=== PATIENT | male | born 1950 | race Caucasian/White ===

== ENCOUNTER → 2016-02-27 | Outpatient (CLI) | payer OTHER ==
[~2016-02-27] MED LIST: ASCA500 PO; ASPEC81 PO; ATOR10TA88 PO; CYAN10005 PO; LISI10TA PO; OMEG10007 PO
--- NOTE | 2016-02-27 12:20 | DIAGNOSTIC IMAGING REPORT ---
ABDOMINAL ULTRASOUND, RIGHT UPPER QUADRANT HISTORY: R10.11 Right upper quadrant abdominal pain of unknown etiology. COMPARISON: None. FINDINGS: Pancreas: The pancreas demonstrates a normal echotexture. Liver: The liver is echogenic consistent with fatty change. Mildly enlarged measuring 19.5 cm in length. Gallbladder: No gallbladder wall thickening. No gallstones. CBD: 5 mm. Right kidney: No hydronephrosis. There is a 1.8 x 1.6 cm cyst within the upper pole. A few echogenic foci adjacent to the cyst may represent peripheral calcification. These measure up to 1 cm.. IMPRESSION: 1. Normal gallbladder. No gallstones. 2. Hepatomegaly demonstrating fatty change. 3. A 1.8 x 1.6 cm cyst within the upper pole of the right kidney. There are adjacent echogenic foci which may represent coarse cortical calcifications. Electronically signed by: Alfredo Soliman M.D. 02/27/2016 12:18 PM Dictated Date/Time: 02/27/2016 12:15 PM
[2016-02-27 13:24] LABS: BASO % 0.6 %; BASO ABS # 0.04 K/uL (0-0.2); COMPLETE YES; EOS % 3.2 %; HEMATOCRIT 41.2 % (42-52); IG% 0.3 %; LYMPH % 19.8 %; LYMPH ABS # 1.36 K/uL (1.2-3.4); MEAN CELL VOLUME 90.7 fL (80-100); MEAN CORPUSCULAR HEMOGLOBIN 30.2 pg (25-34); MEAN CORPUSCULAR HGB CONC 33.3 g/dl (32-36); MEAN PLATELET VOLUME 10.3 fL (7.4-10.4); MONO % 12.5 %; NEUT % 63.6 %; PLATELET COUNT 243 K/uL (130-400); RED BLOOD COUNT 4.54 M/uL (4.7-6.1); WHITE BLOOD COUNT 6.87 K/uL (4.8-10.8)
[2016-02-27 13:29] LABS: URINE APPEARANCE CLEAR (CLEAR); URINE BILIRUBIN NEG (NEG); URINE COLOR DK YELLOW; URINE EPITHELIAL CELL AUTO >30 /lpf (0-5); URINE NITRITE NEG (NEG); URINE PH 6.5 (4.5-7.5); URINE SPECIFIC GRAVITY 1.026 (1.000-1.030); UROBILINOGEN NEG (NEG)
[2016-02-27 13:52] LABS: MANUAL MICROSCOPIC REQUIRED? NO; REVIEW REQ? YES
[2016-02-27 13:57] LABS: ALB/GLOB RATIO 0.9 (0.9-2); ALKALINE PHOSPHATASE 87 U/L (45-117); ALT/SGPT 27 U/L (12-78); AST/SGOT 11 U/L (15-37); BLOOD UREA NITROGEN 20 mg/dl (7-18); BUN/CREATININE RATIO 18.5 (10-20); CALCIUM 9.2 mg/dl (8.5-10.1); CARBON DIOXIDE 29 mmol/L (21-32); CHLORIDE 105 mmol/L (98-107); GLUCOSE 105 mg/dl (70-99); HDL CHOLESTEROL 39 mg/dl; POTASSIUM 4.7 mmol/L (3.5-5.1); SODIUM 141 mmol/L (136-145)
[2016-02-27 14:03] LABS: URINE MUCUS PRESENT (NONE PRSENT)
[2016-02-27 14:07] LABS: CHOLESTEROL 151 mg/dl (0-200); CHOLESTEROL/HDL RATIO 3.9; LDL CHOLESTEROL CALCULATED 77 mg/dl; TRIGLYCERIDES 174 mg/dl (0-150); VERY LOW DENSITY LIPOPROT CALC 35 mg/dl
== END | disposition home or self-care (01) ==
LOC: C.ULTR 11:39
PROVIDERS: ATTEND Family Medicine
DX: R10.11 Right upper quadrant pain (principal); E78.5 Hyperlipidemia, unspecified; I10 Essential (primary) hypertension; R12 Heartburn; R16.0 Hepatomegaly, not elsewhere classified; N28.1 Cyst of kidney, acquired

== ENCOUNTER → 2017-02-14 | Outpatient (CLI) | payer OTHER ==
[~2017-02-14] MED LIST changes: +ATOR10TA82 PO; -ATOR10TA88 PO
== END | disposition home or self-care (01) ==
LOC: C.LABMFLN 10:31
PROVIDERS: ATTEND Physician Assistant
DX: J02.9 Acute pharyngitis, unspecified (principal)

== ENCOUNTER → 2017-02-24 | Outpatient (CLI) | payer OTHER | END | disposition home or self-care (01) | LOC: C.LABMFLN 12:09 | PROVIDERS: ATTEND Physician Assistant | DX: R35.1 Nocturia (principal) ==

== ENCOUNTER → 2017-03-14 | Outpatient (CLI) | payer OTHER | END | disposition home or self-care (01) | LOC: C.LABMFLN 10:11 | PROVIDERS: ATTEND Physician Assistant | DX: R19.7 Diarrhea, unspecified (principal); T36.95XA Adverse effect of unspecified systemic antibiotic, initial encounter ==

== ENCOUNTER 2021-10-16 16:52 | Observation (INO) ==
--- NOTE | 2021-10-16 17:31 | ED Triage Note ---
Date of Service October 16, 2021 History of Present Illness This patient was briefly evaluated while in triage. An abbreviated physical exam was performed. This patient is a 70-year-old Male who presents to the ED for evaluation of low magnesium levels. Patient states he had this checked as an outpatient and was called and told to come here. He does state he has had some chest pain over the past day. Physical Exam VITALS: Vitals are noted on the nurse's note and reviewed by myself. GENERAL: This is a 70-year-old male, in no acute distress, well-developed well- nourished. SKIN: The skin was without rashes. LUNGS: Normal respiratory effort. NEURO: Patient was alert and oriented to person place and time. Initial orders for labs and / or imaging were placed and patient was placed in the waiting area until a bed is available. Please see further documentation for the full ED course. MDM / Impression Impression Impression: Hypomagnesemia
[2021-10-16 18:42] LABS: Basophils # (auto) 0.06 K/uL (0-0.2); Basophils % (auto) 0.7 %; Eosinophils # (auto) 0.18 K/uL (0-0.50); Hemoglobin 9.8 g/dl (14.0-18.0); Immature Granulocytes # (auto) 0.04 K/uL (0.00-0.02); Immature Granulocytes % (auto) 0.4 %; Lymphocytes # (auto) 1.93 K/uL (1.2-3.4); Lymphocytes % (auto) 21.1 %; Mean Corpuscular Hemoglobin 28.3 pg (25.0-34.0); Mean Corpuscular Hgb Conc 32.7 g/dL (32.0-36.0); Mean Corpuscular Volume 86.7 fL (80.0-100.0); Mean Platelet Volume 10.5 fL (9.4-12.4); Monocytes # (auto) 0.93 K/uL (0.24-0.82); Monocytes % (auto) 10.2 %; Neutrophils % (auto) 65.6 %; Platelet Count 256 K/uL (130-400); RDW Coefficient of Variation 15.6 % (11.5-14.5); RDW Standard Deviation 49.6 fL (36.4-46.3); Red Blood Count 3.46 M/uL (4.63-6.08); White Blood Count 9.14 K/ul (4.8-10.8)
[2021-10-16 19:03] LABS: BUN Creatinine Ratio 18.1 (10-20); Calcium 7.8 mg/dl (8.5-10.1); Creatinine Clr Calc Pharmacy 71.4 ml/min; Est GFR (African American) 66.8 ml/min; Est GFR (Non-African American) 57.7 ml/min; Potassium 3.6 mmol/L (3.5-5.1)
[2021-10-16 19:05] LABS: Albumin Globulin Ratio 1.2 (0.9-2); Albumin Level 3.9 gm/dl (3.4-5.0); Bilirubin,Total 0.3 mg/dl (0.2-1.0); Globulin 3.3 gm/dl (2.5-4.0); Magnesium 0.5 mg/dl (1.7-2.4); Phosphorus 2.8 mg/dl (2.5-4.9); Total Protein 7.2 gm/dl (6.0-8.3)
--- NOTE | 2021-10-16 19:17 | XRay Report ---
XR chest 1V portable HISTORY: 70 years-old Male Chest pain acute atypical chest pain COMPARISON: Chest radiograph 09/15/1999 TECHNIQUE: Portable AP view of the chest FINDINGS: Cardiomediastinal and hilar silhouettes are within normal limits. No pneumothorax, pleural effusion, airspace consolidation or overt pulmonary edema. Bones of the chest appear grossly intact. IMPRESSION: No acute process. ACT 112: Negative or not required by law. The above report was generated using voice recognition software. It may contain grammatical, syntax o r spelling errors. Electronically signed by: Adam Milner M.D. 10/16/2021 7:15 PM
[2021-10-16] MEDS: MAGNESIUM SULFATE / D5W 1 GM/100 ML BAG IV SCH ×2 (19:31→19:52)
--- NOTE | 2021-10-16 21:57 | Communication Note ---
Date of Service: October 16, 2021 Resident attestation note. ED rotation. I saw the patient with Dr. Grider, the ED attending. I did not participate in the documentation. Resident Activity Tracking Resident Involvement: Resident Care Provided Care Provided: Adult ED
--- NOTE | 2021-10-16 22:12 | History & Physical Report ---
Date of Service October 16, 2021 Assessment & Plan (1) Hypomagnesemia: Plan: Pt is a 70 yo male with PMH of HTN, HLD, GERD, CKD, and UT s/p cath with no stent placement presenting for low magnesium seen on outpatient labs. Hypomagnesemia - asymptomatic - 0.5 on admission - given 2g while in ER - ordered 1g bags x6 - urine random Cr and Mg pending - UA uncollected - BMP, CBC w/o diff, and Mg for AM Anemia - Hgb 9.8 on admission - previously (09/2020) 12.3 - no signs of bleeding - B12, folate normal - iron 45, ferritin 131.5 Chest pain - occurred earlier in the day, not present in ER - EKG showed sinus bradycardia with new incomplete RBBB - trop neg at 4.6 - no further workup CKD III - Cr on admission: 1.27 - Baseline appears to be around 1.2-1.3 - continue to monitor HTN - most recent - continue home meds: 100 mg BID, lisinopril 40 mg daily, chlorthalidone 25 mg daily, amlodipine 10 mg daily HLD - continue home atorvastatin 40 mg HS (2) Anemia: (3) Chronic kidney disease, stage 3a: (4) Hypertension: (5) Hyperlipidemia: Plan Diet: heart healthy Fluids/electrolytes: magnesium 1g bags x6 (+2 from ER) Code: full DVT ppx: lovenox 40 mg Dispo: med/tele History of Present Illness Chief Complaint: low magnesium on outpatient labs Primary Care Provider: Paris Steward PA-C Pt is a 70 yo male with PMH of HTN, HLD, GERD, CKD, and UT s/p cath with no stent placement presenting for low magnesium seen on outpatient labs. Pt explains that he had routine labs drawn on Friday for his outpatient provider. Today, he was notified that the results showed he is anemic and had extremely low magnesium. He has never been told that he was anemic before. He did have an episode similar to this last year where his magnesium was low and he was told to go to the hospital for treatment. It was recommended that he be on oral magnesium supplementation after that episode but the pt may have mis understood and he only bought and took 1 bottle of supplements then quit. Therefore, he has not been taking any supplementation for many months. The only symptoms the pt has noticed is that he feels very fatigued over the last few days. Today, he had a few episodes of sharp, stabbing chest pain. Currently, he is not experiencing chest pain. Pt had a heart attack 1-2 years ago where he did not have any chest pain but his "blood tests" showed that he was having a heart attack. He had a cardiac cath done but no stent was necessary. He does explain that he has had heart palpitations since he was 26 years old. He has had multiple event/holter monitors since then. He describes that he used to feel that his palpitations were like an extra beat, but now they are more like a run of fast beats. These episodes last for about 20 seconds and he usually terminates them by coughing. He has not noticed any increase or change in the heart palpitations recently. He also describes "kaleidoscope vision" over the last few weeks to months for which he has spoken to his outpatient physician about. He is scheduled for a brain MRI. Otherwise, he denies SOB, cough, headaches, abdominal pain, and neurologic deficits of any kind. In the ER, his magnesium was 0.5. His other electrolytes were within normal limits. Troponin was negative at 4.6. B12 and folate were normal. Iron low normal at 45, ferritin 131.5. Hgb was low at 9.8 with MCV of 86.7. His EKG showed sinus bradycardia with a new incomplete RBBB. CXR was negative. He was given 2 grams of magnesium IV while in the ER. Allergies Allergy/AdvReac Type Severity Reaction Status Date / Time bee venom protein (honey bee) Allergy Intermediate EXTRA Verified 10/16/21 23:22 SWELLING OF SITE Home Medications Medication Instructions Recorded Confirmed Type esomeprazole magnesium 20 mg 20 mg PO DAILY 10/22/18 10/16/21 History tablet,delayed release niacin 100 mg tablet 100 mg PO HS 04/13/19 10/16/21 History atorvastatin 40 mg tablet 40 mg PO HS #90 tabs 10/27/20 10/16/21 Rx tadalafil 20 mg tablet 20 mg PO ONCE PRN sexual activity 02/27/21 10/16/21 Rx #10 tabs chlorthalidone 25 mg tablet 25 mg PO DAILY #90 tabs 04/13/21 10/16/21 Rx diphenhydramine HCl 25 mg capsule 25 mg PO QPM 04/13/21 10/16/21 History (Benadryl) amlodipine 10 mg tablet 10 mg PO DAILY #90 tabs 10/11/21 10/16/21 Rx lisinopril 40 mg tablet 40 mg PO DAILY #90 tabs 10/11/21 10/16/21 Rx ascorbate calcium (vitamin C) 500 1,000 mg PO DAILY 10/16/21 10/16/21 History mg tablet cyanocobalamin (vitamin B-12) 0 mcg PO DAILY 10/16/21 10/16/21 History 1,000 mcg tablet (Vitamin B-12) krill 350 mg-omega-3 90 mg-dha 24 1 cap PO DAILY 10/16/21 10/16/21 History mg-epa 50 xz-szhmdkr-alyam capsule ([place]-3 Krill Oil) metoprolol succinate 100 mg 100 mg PO BID 10/16/21 10/16/21 History tablet,extended release 24 hr Past Med/Surg History Medical History Acute kidney injury Anemia Chronic kidney disease, stage 3a GERD (gastroesophageal reflux disease) Heart palpitations HX OF HOLTER MONITOR, NO CONCERNS, FOLLOWS WITH DR. HEARN. Hyperlipidemia Hypertension Hypertensive urgency Hypomagnesemia Kidney stones NSTEMI (non-ST elevated myocardial infarction) PVCs (premature ventricular contractions) Renal artery stenosis Vitamin D deficiency Surgical History Fusion of spine CERVICAL, WITH BONE GRAFT gets pain in legs when moves head back History of appendectomy History of arthroscopy B/L KNEE REPAIR History of colonoscopy History of cystoscopy HX OF LASER STONE DESTRUCTION, STENT PLACEMENT AND REMOVAL, [facility] History of lymph node excision PT HAD BIOPSY OF ENLARGED LYMPH NODE OF NECK, PT LATER HAD NODE REMOVED DUE TO ENLARGEMENT. BENIGN. Nausea and vomiting after administration of anesthetic agent PT RECALLS SEVERE NAUSEA, VOMITING AND ABDOMINAL PAIN FOLLOW URINARY STENT REMOVAL ([facility]) PT UNSURE IF IT WAS AN ANESTHESIA AGENT OR NARCOTIC THAT WAS GIVEN. Family History Other No family history of adverse response to anesthesia Social History Smoking Status: Current every day smoker Cigarettes Per Day: 10 a day; Second Hand Exposure: Yes (parents smoked); Hx Alcohol Use: Yes Alcohol type: hard liquor Hx Substance Use: No Preferred Language: Slovenian Communication Ability: Effective Outdoor Recreation Specialist Required: No Beliefs That Will Affect Care: None Current Living Situation: Family Current Living Situation Comment: Lives with son Feels Safe at Home: Yes Assistive Devices: None Review of Systems Constitutional: Denies fevers and chills. Eyes: Endorses "kaleidoscope vision" Respiratory: Denies SOB, trouble breathing, cough, and congestion. Cardiovascular: Additional Comments: Pt endorses palpitations throughout his entire life. No recent changes. Slight chest pain earlier today. Gastrointestinal: Denies abdominal pain, diarrhea, constipation, hematochezia. Neurologic: Pt endorses occasional numbness in his fingertips Physical Exam Constitutional: NAD, vitals WNL. Eyes: PERRLA. Conjunctivae normal. ENMT: TM normal. Nonerythematous oropharynx with no lesions. Respiratory: CTA bilaterally. Non labored breathing. No rhonchi, wheezing, or crackles. Cardiovascular: RRR. No murmurs noted. No LE edema. Peripheral pulses 2+. Gastrointestinal (Abdomen): Nontender, +BS. No masses noted. Skin: No rashes or skin lesions noted. Neurologic: Sensation grossly intact. No FND appreciated. Psychiatric: Speech of normal pace and content. Mood and affect congruent. Results & Data Results & Data ([facility]) Vital Signs (Past 12 Hours) Vital Signs Temp Pulse Pulse Resp BP BP Pulse Ox 10/16/21 21:30 71 16 156/78 H 96 10/16/21 20:02 170/77 H 10/16/21 19:54 72 16 96 10/16/21 19:33 71 18 144/74 H 95 10/16/21 17:19 36.7 C 73 18 122/72 96 O2 Del Method 10/16/21 21:30 Room Air 10/16/21 20:02 10/16/21 19:54 Room Air 10/16/21 19:33 Room Air 10/16/21 17:19 Room Air Laboratory Results Cardiac Enzymes 10/16/21 10/16/21 Range/Units 18:20 18:20 AST 8 L (13-39) U/L Troponin I High Sens 4.6 (0-20) pg/ml CBC 10/16/21 Range/Units 18:20 WBC 9.14 (4.8-10.8) K/ul RBC 3.46 L (4.63-6.08) M/uL Hgb 9.8 L (14.0-18.0) g/dl Hct 30.0 L (40.1-51.0) % Plt Count 256 (130-400) K/uL Neut # (Auto) 6.00 (1.4-6.5) K/uL Lymph # (Auto) 1.93 (1.2-3.4) K/uL [place] # (Auto) 0.93 H (0.24-0.82) K/uL Eos # (Auto) 0.18 (0-0.50) K/uL Baso # (Auto) 0.06 (0-0.2) K/uL Comprehensive Metabolic Panel 10/16/21 Range/Units 18:20 Sodium 139 (136-145) mmol/L Potassium 3.6 (3.5-5.1) mmol/L Chloride 100 (98-107) mmol/L Carbon Dioxide 28 (21-32) mmol/L BUN 23 (6-23) mg/dl Creatinine 1.27 (0.6-1.4) mg/dl Glucose 109 H (70-99(Fasting)) mg/dl Calcium 7.8 L (8.5-10.1) mg/dl AST 8 L (13-39) U/L ALT 8 (7-52) U/L Alkaline Phosphatase 64 (34-104) U/L Total Protein 7.2 (6.0-8.3) gm/dl Albumin 3.9 (3.4-5.0) gm/dl Intake and Output 10/16/21 10/16/21 10/16/21 06:59 14:59 22:59 Intake Total 200 / 200 Balance 200 / 200 Intake: IV 200 / 200 Magnesium Sulfate / D5w 1 gm In 200 / 200 100 ml @ 200 mls/hr IV Q30M [facility] Rx#:[id number] Other: Weight 113.6 kg Weight Measurement Method Chair Scale Patient Weight 10/17/21 06:59 Weight 113.6 kg Diagnostic Findings Chest X-Ray 09/06/22 17:22 XR chest 1V portable HISTORY: 70 years-old Male Chest pain acute atypical chest pain COMPARISON: Chest radiograph 09/15/1999 TECHNIQUE: Portable AP view of the chest FINDINGS: Cardiomediastinal and hilar silhouettes are within normal limits. No pneumothorax, pleural effusion, airspace consolidation or overt pulmonary edema. Bones of the chest appear grossly intact. IMPRESSION: No acute process. ACT 112: Negative or not required by law. The above report was generated using voice recognition software. It may contain grammatical, syntax or spelling errors. Electronically signed by: Adam Milner M.D. 10/16/2021 7:15 PM Code Status & VTE Plan Code Status Full code VTE Prophylaxis Plan VTE Prophylaxis will be ordered: Yes Supervising Physician Co-Signing Physician Notes Patient seen and examined, chart reviewed, case discussed with Dr. Craven and I agree with her assessment and plan as documented above. In brief, patient is a 70-year-old male with history of hypertension, hyperlipidemia, coronary artery disease and CKD presenting at the request of his primary care physician for hypomagnesemia discovered on routine outpatient labs as well as anemia. Patient endorses weakness and fatigue Magnesium = 0.5, Hgb = 9.8 On exam patient is afebrile, hemodynamically stable, nontoxic in appearance Skinwarm, dry, intact, no rash or lesions HEENTnormocephalic, atraumatic, pupils equal reactive to light, moist mucous membranes Heart+ S1, S2, regular, no murmur/rub/gallop Lungsclear to auscultation Abdomenpositive bowel sounds, soft, nontender, nondistended Labs and images reviewed. Significant for magnesium = 0.5. Normal potassium, phosphorus and calcium levels Hgb = 9.8 Troponin = 4.6 no acute ischemic changes present on EKG Assessment/plan: 70-year-old male presenting with fatigue, found to be anemic with low magnesium of 0.5. Possibly secondary to patient's chlorthalidone which he takes for high blood pressure. He does report that he has tried to change his blood pressure medications but is quite intolerant to other classes of medications. Patient is also on Nexium with magnesium preparation. He denies diarrhea or vomiting. Reports eating a normal diet. Magnesium repletion. 2 g given in ER. Will order an additional 6 g Repeat chemistry in a.m. Anemiapatient with normochromic, normocytic anemia with Hgb = 9.8. Previous values have been around 12. B12 and folate levels have been normal Continue to monitor. No indication for transfusion at this time Check fecal occult blood Hypertensionblood pressure mildly elevated presently 154/63 Continue lisinopril 40 mg p.o. daily, metoprolol 100 mg p.o. twice daily, amlodipine 10 mg p.o. daily and chlorthalidone 25 mg p.o. daily. Would consider discontinuing chlorthalidone given patient's degree of severe hypomagnesemia, chlorthalidone likely contributing GERDchronic, stable, continue Protonix 20 mg p.o. daily Remainder of plan as above Resident Activity Tracking Resident Involvement: Resident Care Provided Care Provided: Adult Hospital Medicine
--- NOTE | 2021-10-16 22:25 | Emergency Department Note ---
History of Present Illness General Chief complaint: Abnormal Labs/Diagnostic Testing Stated complaint: REF BY , MAGNESIUM LEVELS DOWN Time Seen by Provider: 10/16/21 19:18 History of Present Illness Maximum Pain Intensity: 1 70-year-old male presents to the ED with a chief complaint of low magnesium. The patient states that he had some outpatient blood work that showed that his magnesium level was low. This was checked 4 days ago and it was 0.6. The patient does report some fatigue and generalized weakness. He also reports a heartburn type sensation in his chest at times. Has had low magnesium in the past but not this low. He states that he had been on magnesium supplements previously but has not taken them for at least a year. No other complaints at this time. Home Medications Medication Instructions Recorded Confirmed Type esomeprazole magnesium 20 mg 20 mg PO DAILY 10/22/18 10/12/21 History tablet,delayed release niacin 100 mg tablet 100 mg PO HS 04/13/19 10/12/21 History vitamin B complex (B 1 tab PO DAILY 04/13/19 10/12/21 History Complex-Vitamin B12 tablet) folic acid 1 mg tablet 1 mg PO DAILY 01/28/20 10/12/21 History milk thistle 500 mg capsule 500 mg PO DAILY 01/28/20 10/12/21 History omega-3 fatty acids 1,000 mg 2,000 mg PO BID #60 caps 03/10/20 10/12/21 Rx capsule (Fish Oil Concentrate) ascorbic acid (vitamin C) 1,000 mg 1 g PO DAILY 09/14/20 10/12/21 History tablet (Vitamin C) promethazine 25 mg rectal 25 mg NV Q6H PRN nausea #12 ea 09/14/20 10/12/21 Rx suppository atorvastatin 40 mg tablet 40 mg PO HS #90 tabs 10/27/20 10/12/21 Rx tadalafil 20 mg tablet 20 mg PO ONCE PRN sexual activity 02/27/21 10/12/21 Rx #10 tabs chlorthalidone 25 mg tablet 25 mg PO DAILY #90 tabs 04/13/21 10/12/21 Rx diphenhydramine HCl 25 mg capsule 25 mg PO QPM 04/13/21 10/12/21 History (Benadryl) amlodipine 10 mg tablet 10 mg PO DAILY #90 tabs 10/11/21 10/12/21 Rx lisinopril 40 mg tablet 40 mg PO DAILY #90 tabs 10/11/21 10/12/21 Rx metoprolol succinate 100 mg 100 mg PO BID #180 tabs 10/11/21 10/12/21 Rx tablet,extended release 24 hr (Toprol XL) magnesium chloride 71.5 mg 143 mg PO BID #60 tabs 10/16/21 Rx (magnesium chloride) tablet,delayed release (Slow-Mag) Allergies Allergy/AdvReac Type Severity Reaction Status Date / Time bee venom protein (honey bee) Allergy Intermediate EXTRA Verified 10/12/21 13:06 SWELLING OF SITE Past Med/Surg History Medical History Acute kidney injury Anemia Chronic kidney disease, stage 3a GERD (gastroesophageal reflux disease) Heart palpitations HX OF HOLTER MONITOR, NO CONCERNS, FOLLOWS WITH DR. HEARN. Hyperlipidemia Hypertension Hypertensive urgency Hypomagnesemia Kidney stones NSTEMI (non-ST elevated myocardial infarction) PVCs (premature ventricular contractions) Renal artery stenosis Vitamin D deficiency Surgical History Fusion of spine CERVICAL, WITH BONE GRAFT gets pain in legs when moves head back History of appendectomy History of arthroscopy B/L KNEE REPAIR History of colonoscopy History of cystoscopy HX OF LASER STONE DESTRUCTION, STENT PLACEMENT AND REMOVAL, [facility] History of lymph node excision PT HAD BIOPSY OF ENLARGED LYMPH NODE OF NECK, PT LATER HAD NODE REMOVED DUE TO ENLARGEMENT. BENIGN. Nausea and vomiting after administration of anesthetic agent PT RECALLS SEVERE NAUSEA, VOMITING AND ABDOMINAL PAIN FOLLOW URINARY STENT REMOVAL ([facility]) PT UNSURE IF IT WAS AN ANESTHESIA AGENT OR NARCOTIC THAT WAS GIVEN. Family History Other No family history of adverse response to anesthesia Social History Smoking Status: Current every day smoker Cigarettes Per Day: 10 a day; Second Hand Exposure: Yes (parents smoked); Hx Alcohol Use: Yes Alcohol type: hard liquor Hx Substance Use: No Preferred Language: Zimbabwean Communication Ability: Effective Motel Keeper Required: No Beliefs That Will Affect Care: None Current Living Situation: Family Current Living Situation Comment: Lives with son Feels Safe at Home: Yes Assistive Devices: None Review of Systems A total of 10 systems reviewed and were otherwise negative Physical Exam Vital Signs Vital Signs - 24 hr 10/16/21 17:19 10/16/21 19:33 10/16/21 19:54 Temperature 36.7 C Temperature Source Temporal Artery Scan Pulse Rate 73 Pulse Rate [Finger] 71 72 Pulse Rate from SpO2 Sensor Respiratory Rate 18 18 16 Respiratory Effort / Characteristics Non-Labored Spontaneous Non-Labored Spontaneous Non-Labored Spontaneous Respiratory Depth Normal Respiratory Pattern Regular Blood Pressure 122/72 Blood Pressure [Right Arm] 144/74 H Blood Pressure Mean 88 Blood Pressure Mean [Right Arm] 97 Blood Pressure Position Sitting Pulse Oximetry 96 95 96 Oxygen Delivery Method Room Air Room Air Room Air Sepsis Recent Fever Within 48 Hours No Sepsis New/Unexplained Change in Mental Status No Sepsis Action Taken by Nursing No Action Required 10/16/21 20:02 10/16/21 21:30 Temperature Temperature Source Pulse Rate 71 Pulse Rate [Finger] Pulse Rate from SpO2 Sensor 72 Respiratory Rate 16 Respiratory Effort / Characteristics Respiratory Depth Respiratory Pattern Blood Pressure 156/78 H Blood Pressure [Right Arm] 170/77 H Blood Pressure Mean 104 Blood Pressure Mean [Right Arm] 108 Blood Pressure Position Pulse Oximetry 96 Oxygen Delivery Method Room Air Sepsis Recent Fever Within 48 Hours Sepsis New/Unexplained Change in Mental Status Sepsis Action Taken by Nursing CONSTITUTIONAL/VITAL SIGNS: Reviewed / noted above. GENERAL: Non-toxic in appearance. INTEGUMENTARY: Warm, dry, and [place]. HEAD: Normocephalic. EYES: without scleral icterus or trauma. ENT/OROPHARYNX: clear and moist. LYMPHADENOPATHY/NECK: Is supple without lymphadenopathy or meningismus. RESPIRATORY: Clear to auscultation bilaterally. No increased work of breathing. CARDIOVASCULAR: Regular rate and rhythm. GI/ABDOMEN: Soft and nontender. No organomegaly or pulsatile mass. EXTREMITIES: Warm and well perfused. BACK: No CVA tenderness. NEUROLOGICAL: Intact without focal deficits. PSYCHIATRIC: normal affect. MUSCULOSKELETAL: Normally developed with good muscle tone. TRIAGE NURSING DOCUMENTATION REVIEWED. Course Administered Medications Discontinued Medications Magnesium Sulfate/Dextrose (Magnesium Sulfate / D5w) 1 gm in 100 mls @ 200 mls/hr IV Q30M RIAZ Stop: 10/16/21 20:19 Last Infusion: 10/16/21 20:22 Dose: 0 mls/hr Documented By: Admin: 10/16/21 19:52 Dose: 200 mls/hr Documented By: Infusion: 10/16/21 19:52 Dose: 200 mls/hr Documented By: Admin: 10/16/21 19:31 Dose: 200 mls/hr Documented By: ALICIA Medical Decision Making Differential Diagnosis Differential includes acute coronary syndrome, myocardial infarction, CVA, TIA, anemia, infection, pneumonia, UTI, pyelonephritis, poor nutrition, dehydration, electrolyte disturbance,hypoglycemia. Medical Records Attestation: I reviewed the patient's medical records. Home Medications Current Medication List: was personally reviewed by me Laboratory Data Attestation: I reviewed the patient's lab results. Result diagrams: 10/16/21 18:20 10/16/21 18:20 Lab Results 10/16/21 10/16/21 10/16/21 Range/Units 18:20 18:20 18:20 WBC 9.14 (4.8-10.8) K/ul RBC 3.46 L (4.63-6.08) M/uL Hgb 9.8 L (14.0-18.0) g/dl Hct 30.0 L (40.1-51.0) % MCV 86.7 (80.0-100.0) fL MCH 28.3 (25.0-34.0) pg MCHC 32.7 (32.0-36.0) g/dL RDW Std Deviation 49.6 H (36.4-46.3) fL RDW Coeff of Tariq 15.6 H (11.5-14.5) % Plt Count 256 (130-400) K/uL MPV 10.5 (9.4-12.4) fL Immature Gran % (Auto) 0.4 % Neut % (Auto) 65.6 % Lymph % (Auto) 21.1 % [place] % (Auto) 10.2 % Eos % (Auto) 2.0 % Baso % (Auto) 0.7 % Neut # (Auto) 6.00 (1.4-6.5) K/uL Lymph # (Auto) 1.93 (1.2-3.4) K/uL [place] # (Auto) 0.93 H (0.24-0.82) K/uL Eos # (Auto) 0.18 (0-0.50) K/uL Baso # (Auto) 0.06 (0-0.2) K/uL Immature Gran # (Auto) 0.04 H (0.00-0.02) K/uL Sodium 139 (136-145) mmol/L Potassium 3.6 (3.5-5.1) mmol/L Chloride 100 (98-107) mmol/L Carbon Dioxide 28 (21-32) mmol/L Anion Gap 11 (3-11) BUN 23 (6-23) mg/dl Creatinine 1.27 (0.6-1.4) mg/dl Est Cr Clr Drug Dosing 71.4 ml/min Est GFR ( Amer) 66.8 ml/min Est GFR (Non-Af Amer) 57.7 ml/min BUN/Creatinine Ratio 18.1 (10-20) Glucose 109 H (70-99(Fasting)) mg/dl Calcium 7.8 L (8.5-10.1) mg/dl Phosphorus 2.8 (2.5-4.9) mg/dl Magnesium 0.5 L* (1.7-2.4) mg/dl Total Bilirubin 0.3 (0.2-1.0) mg/dl AST 8 L (13-39) U/L ALT 8 (7-52) U/L Alkaline Phosphatase 64 (34-104) U/L Troponin I High Sens 4.6 (0-20) pg/ml Total Protein 7.2 (6.0-8.3) gm/dl Albumin 3.9 (3.4-5.0) gm/dl Globulin 3.3 (2.5-4.0) gm/dl Albumin/Globulin Ratio 1.2 (0.9-2) Vitamin B12 (180-914) pg/ml Folate (>5.38) ng/ml SARS-CoV-2, RNA, NAAT (NEGATIVE) 10/16/21 10/16/21 Range/Units 18:20 18:21 WBC (4.8-10.8) K/ul RBC (4.63-6.08) M/uL Hgb (14.0-18.0) g/dl Hct (40.1-51.0) % MCV (80.0-100.0) fL MCH (25.0-34.0) pg MCHC (32.0-36.0) g/dL RDW Std Deviation (36.4-46.3) fL RDW Coeff of Tariq (11.5-14.5) % Plt Count (130-400) K/uL MPV (9.4-12.4) fL Immature Gran % (Auto) % Neut % (Auto) % Lymph % (Auto) % [place] % (Auto) % Eos % (Auto) % Baso % (Auto) % Neut # (Auto) (1.4-6.5) K/uL Lymph # (Auto) (1.2-3.4) K/uL [place] # (Auto) (0.24-0.82) K/uL Eos # (Auto) (0-0.50) K/uL Baso # (Auto) (0-0.2) K/uL Immature Gran # (Auto) (0.00-0.02) K/uL Sodium (136-145) mmol/L Potassium (3.5-5.1) mmol/L Chloride (98-107) mmol/L Carbon Dioxide (21-32) mmol/L Anion Gap (3-11) BUN (6-23) mg/dl Creatinine (0.6-1.4) mg/dl Est Cr Clr Drug Dosing ml/min Est GFR ( Amer) ml/min Est GFR (Non-Af Amer) ml/min BUN/Creatinine Ratio (10-20) Glucose (70-99(Fasting)) mg/dl Calcium (8.5-10.1) mg/dl Phosphorus (2.5-4.9) mg/dl Magnesium (1.7-2.4) mg/dl Total Bilirubin (0.2-1.0) mg/dl AST (13-39) U/L ALT (7-52) U/L Alkaline Phosphatase (34-104) U/L Troponin I High Sens (0-20) pg/ml Total Protein (6.0-8.3) gm/dl Albumin (3.4-5.0) gm/dl Globulin (2.5-4.0) gm/dl Albumin/Globulin Ratio (0.9-2) Vitamin B12 609 (180-914) pg/ml Folate 15.00 (>5.38) ng/ml SARS-CoV-2, RNA, NAAT NEGATIVE (NEGATIVE) Imaging Data Radiologist's Impression: Chest X-Ray 10/16/21 17:22 XR chest 1V portable HISTORY: 70 years-old Male Chest pain acute atypical chest pain COMPARISON: Chest radiograph 09/15/1999 TECHNIQUE: Portable AP view of the chest FINDINGS: Cardiomediastinal and hilar silhouettes are within normal limits. No pneumothora x, pleural effusion, airspace consolidation or overt pulmonary edema. Bones of the chest appear grossly intact. IMPRESSION: No acute process. ACT 112: Negative or not required by law. The above report was generated using voice recognition software. It may contain grammatical, syntax or spelling errors. Electronically signed by: Adam Milner M.D. 10/16/2021 7:15 PM ECG Data Attestation: I personally reviewed and interpreted this ECG as follows: Additional Comments: Twelve-lead EKG: Per my interpretation shows a normal sinus rhythm at a rate of 75. No ST elevation. No PVCs. Normal QTC. MDM Narrative 70-year-old male presents with hypomagnesemia as well as some fatigue and weakness and a little chest pain. The patient's EKG shows a normal sinus rhy thm. His magnesium levels 0.5 today. CBC was unremarkable. Chemistry panel was otherwise unremarkable. Chest x-ray did not show acute process. The patient's troponin was within normal limits. He was given 2 g of IV magnesium here in the emergency department. The patient will be seen by the hospitalist for further evaluation and care. Impression & Plan Hypomagnesemia Discharge Plan Visit Data Chief Complaint: Abnormal Labs/Diagnostic Testing Stated Complaint: REF BY DR MAGNESIUM LEVELS DOWN ED Provider: Alexander Grider ED Midlevel Provider: Rusty Fernandes Discharge Problem: Hypomagnesemia Patient Disposition: Being Evaluated by Hospitalist Forms Stand Alone Forms: My [facility] Prescriptions Prescriptions: No Action omega-3 fatty acids [Fish Oil Concentrate] 1,000 mg capsule 2,000 mg PO BID Qty: 60 0RF atorvastatin 40 mg tablet 40 mg PO HS Qty: 90 1RF tadalafil 20 mg tablet 20 mg PO ONCE PRN (Reason: sexual activity) Qty: 10 5RF amlodipine 10 mg tablet 10 mg PO DAILY Qty: 90 3RF lisinopril 40 mg tablet 40 mg PO DAILY Qty: 90 0RF metoprolol succinate [Toprol XL] 100 mg tablet extended release 24 hr 100 mg PO BID Qty: 180 0RF Slow-Mag 71.5 mg tablet,delayed release (DR/EC) 143 mg PO BID Qty: 60 3RF niacin 100 mg tablet 100 mg PO HS vitamin B complex [B Complex-Vitamin B12] Tablet 1 tab PO DAILY Nexium 24HR 20 mg tablet,delayed release (DR/EC) 20 mg PO DAILY folic acid 1 mg tablet 1 mg PO DAILY milk thistle 500 mg capsule 500 mg PO DAILY Rx Instructions: give with meal/snack diphenhydramine HCl [Benadryl] 25 mg capsule 25 mg PO QPM chlorthalidone 25 mg tablet 25 mg PO DAILY Qty: 90 3RF ascorbic acid (vitamin C) [Vitamin C] 1,000 mg Tablet 1 g PO DAILY promethazine 25 mg suppository 25 mg NV Q6H PRN (Reason: nausea) Qty: 12 0RF Referrals Referrals: Paris Steward PA-C [Primary Care Provider] -
[2021-10-16] MEDS ORDERED: lisinopril 40 MG TAB PO SCH (23:10)
[2021-10-16] MEDS: METOPROLOL SUCC 50MG EXT REL TAB PO SCH (23:13)
[2021-10-16 23:40] LABS: Appearance Urine Clear (Clear); Bacteria Urine Automated Negative (Negative); Bilirubin Urine Negative (Negative); Blood Urine Negative (Negative); Cast Urine Automated 0 /lpf (0-5); Color Urine Yellow; Epithelial Cell Urine Auto >30 /lpf (0-5); Glucose Urine UA Negative (Negative); Ketones Urine Negative (Negative); Leukocyte Esterase Urine Trace (Negative); Nitrite Urine Negative (Negative); Protein Urine Negative (Negative); RBC Urine Automated 0-4 /hpf (0-4); Specific Gravity Urine 1.016 (1.000-1.030); Urobilinogen Urine Negative (Negative); pH Urine 5.5 (4.5-7.5)
--- NOTE | 2021-10-17 00:31 | Billing Data ---
Date of Service October 16, 2021 Coding Level of Care Code INT OBSERVATION CARE 50M LVL 2
[2021-10-17] MEDS: MAGNESIUM SULFATE / D5W 1 GM/100 ML BAG IV SCH ×6 (00:54→10:58)
[2021-10-17] MEDS ORDERED: ENOXAPARIN INJ 40 MG/0.4 ML SYR SQ SCH (06:00)
[2021-10-17 07:08] LABS: Hematocrit (blood only) 30.1 % (40.1-51.0); Hemoglobin 9.7 g/dl (14.0-18.0); Mean Corpuscular Hemoglobin 27.7 pg (25.0-34.0); Mean Corpuscular Hgb Conc 32.2 g/dL (32.0-36.0); Mean Platelet Volume 9.8 fL (9.4-12.4); Platelet Count 223 K/uL (130-400); RDW Coefficient of Variation 15.4 % (11.5-14.5); RDW Standard Deviation 47.8 fL (36.4-46.3); White Blood Count 7.68 K/ul (4.8-10.8)
[2021-10-17 07:28] LABS: BUN Creatinine Ratio 18.8 (10-20); Calcium 7.9 mg/dl (8.5-10.1); Creatinine Clr Calc Pharmacy 89.8 ml/min; Est GFR (African American) 88.2 ml/min; Est GFR (Non-African American) 76.1 ml/min; Magnesium 1.8 mg/dl (1.7-2.4); Potassium 3.5 mmol/L (3.5-5.1)
--- NOTE | 2021-10-17 08:14 | Hospitalist Progress Note ---
Date of Service October 17, 2021 Assessment & Plan (1) Hypomagnesemia: Plan: Pt is a 70 yo male with PMH of HTN, HLD, GERD, CKD, and NE s/p cath with no stent placement presenting for low magnesium seen on outpatient labs. Hypomagnesemia - asymptomatic - 0.5 on admission -given 8 gms of magnesium on presentation - urine random Cr and Mg pending - UA trace LE but contaminated specimen - labs replete in AM Anemia - Hgb 9.8 on admission - previously (09/2020) 12.3 - no signs of bleeding - B12, folate normal - iron 45, ferritin 131.5 Chest pain - occurred earlier in the day, not present in ER - EKG showed sinus bradycardia with new incomplete RBBB - trop neg at 4.6 - no further workup CKD III - Cr on admission: 1.27 - Baseline appears to be around 1.2-1.3 - continue to monitor HTN - most recent 156/78 - continue home meds: 100 mg BID, lisinopril 40 mg daily, chlorthalidone 25 mg daily, amlodipine 10 mg daily HLD - continue home atorvastatin 40 mg HS (2) Anemia: (3) Chronic kidney disease, stage 3a: (4) Hypertension: (5) Hyperlipidemia: Plan Diet: heart healthy Fluids/electrolytes: magnesium 1g bags x6 (+2 from ER) Code: full DVT ppx: lovenox 40 mg Dispo: med/tele Admission and Anticipated Discharge Date Admission Date: October 16, 2021 Results & Data Results & Data ([facility]) Vital Signs (Past 12 Hours) Vital Signs Temp Pulse Pulse Resp BP BP BP 10/17/21 07:17 74 10/17/21 03:00 98.4 F 73 20 159/72 H 10/17/21 02:11 68 10/17/21 01:06 10/17/21 01:06 98.2 F 68 18 144/79 H 10/16/21 23:01 75 19 154/63 H 10/16/21 22:00 68 14 161/81 H 10/16/21 21:30 71 16 156/78 H Pulse Ox O2 Del Method 10/17/21 07:17 10/17/21 03:00 96 Room Air 10/17/21 02:11 10/17/21 01:06 Room Air 09/07/22 01:06 95 Room Air 10/16/21 23:01 95 Room Air 10/16/21 22:00 94 Room Air 10/16/21 21:30 96 Room Air PG Care Time/CCT Total # of Minutes Spent Total Time Spent with Patient: Total time spent is greater than 50% in coordination of care (as documented) at patient's floor/unit and/or counseling patient: Coding Diagnoses Hypomagnesemia E83.42 Anemia D64.9 Chronic kidney disease, stage 3a N18.3 Hypertension I10 Hyperlipidemia E78.5
[2021-10-17] MEDS ORDERED: hydrALAZINE HCL 20 MG/ML VIAL IV PRN (08:15)
[2021-10-17] MEDS: METOPROLOL SUCC 50MG EXT REL TAB PO SCH (08:55)
[2021-10-17] MEDS ORDERED: amLODIPine BESYLATE 5 MG TAB PO SCH (09:00)
[2021-10-17] MEDS ORDERED: CHLORTHALIDONE 25 MG TAB PO SCH (09:00)
[2021-10-17] MEDS ORDERED: PANTOprazole 40 MG TAB PO SCH (09:00)
--- NOTE | 2021-10-17 10:29 | Nephrology Consultation ---
Date of Consultation October 17, 2021 Assessment & Plan (1) Hypomagnesemia: (2) Chronic kidney disease, stage 3a: (3) Hypertension: (4) GERD (gastroesophageal reflux disease): Plan Critical hypomagnesium with history of chronic hypomagnesemia, previously was on supplement which he stopped. Hyponatremia most likely in the setting of diuretics and PPI. Magnesium was 0.5 on admission which improved to 1.8 this morning after getting 4 g of IV magnesium total. Renal function stable blood pressure remained well controlled. Chest pain resolved and cardiac troponin was unremarkable. -- Repeat magnesium now and if magnesium above 1.5, no further IV magnesium needed. Start on Slow-Mag 2 tabs twice a day. -- if discharged anti been later today, please schedule for follow-up magnesium level in a week and then repeat in a month -- will cancel outpatient follow-up tomorrow and reschedule in a month Thank you for allowing me to participate in your patient's care. It was a pleasure to see Juan Jose. History of Present Illness Reason for Consultation: Hypomagnesemia Attending Physician: Coy Kramer MD History of Present Illness Gerard Dietrich is a 70 y o Check comanage past medical history significant for hypertension, history of hyponatremia and previous repeated admission for hypertensive urgency, admitted to the hospital yesterday with critical hypomagnesemia and chest pain. Nephrology consult was requested to manage hypomagnesemia. EMR records were reviewed during pts visit. Juan Jose Has history of chronic hypomagnesemia in the setting of chlorthalidone and PPI, previously was on Slow-Mag 1 tab twice a day however after he ran out of magnesium he stopped taking magnesium supplement for last few months. Yesterday routine lab showed magnesium was 0.6 and he was referred to ER for further evaluation. In year repeat lab showed magnesium 0.5 and he has been g etting IV magnesium supplement since then. While he was seen in ER he had 2 episodes of sharp chest pain but troponins are unremarkable. He was admitted for close monitoring for critical hypomagnesemia and chest pain. Early this morning repeat magnesium while he was getting diabetes supplement was 1.8. Other electrolytes including calcium and potassium normal. Renal function stable. Has stage 3A CKD, b/l cr around 1.4 to 1.5 secondary to hypertension, smoking and h/o chronic heavy NSAID use. He had normal renal function with creatinine of 0.9 on lab on August 2017. Creatinine was 1.3 on lab on November 2017 and has been relatively stable around 1.4-1.5. UA was negative for proteinuria or hematuria. Prior renal imaging showed otherwise normal size kidney and renal Doppler showed bilateral more than 60% stenosis however blood pressure lately has been well controlled. No family history of CKD or ESRD. Dad has history of diabetes. Lives at home with his son. Ex smoker, quit in 2019. 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 Longstanding history of hypertension, had repeated hospitalization with elevated blood pressure, nausea vomiting and GI upset. Workup at [facility] including cardiac catheterization was otherwise unremarkable except only 20% stenosis of right coronary artery. 2D echo showed normal ejection fraction, no LVH. Renin, aldosterone, serum metanephrine was normal. Urine catecholamine metabolic products slightly elevated however not diagnostic. Renal artery Doppler BP better, w/u unremarkable except renal artery Doppler showing bilateral more than 60% stenosis. Overall his otherwise feeling well this morning, chest pain resolved. Blood pressure was running high but improve since this morning and staying around 120 is over 70. Allergies Allergy/AdvReac Type Severity Reaction Status Date / Time bee venom protein (honey bee) Allergy Intermediate EXTRA Verified 10/16/21 23:22 SWELLING OF SITE Home Medications Medication Instructions Recorded Confirmed Type esomeprazole magnesium 20 mg 20 mg PO DAILY 10/22/18 10/16/21 History tablet,delayed release niacin 100 mg tablet 100 mg PO HS 04/13/19 10/16/21 History atorvastatin 40 mg tablet 40 mg PO HS #90 tabs 10/27/20 10/16/21 Rx tadalafil 20 mg tablet 20 mg PO ONCE PRN sexual activity 02/27/21 10/16/21 Rx #10 tabs chlorthalidone 25 mg tablet 25 mg PO DAILY #90 tabs 04/13/21 10/16/21 Rx diphenhydramine HCl 25 mg capsule 25 mg PO QPM 04/13/21 10/16/21 History (Benadryl) amlodipine 10 mg tablet 10 mg PO DAILY #90 tabs 10/11/21 10/16/21 Rx lisinopril 40 mg tablet 40 mg PO DAILY #90 tabs 10/11/21 10/16/21 Rx ascorbate calcium (vitamin C) 500 1,000 mg PO DAILY 10/16/21 10/16/21 History mg tablet cyanocobalamin (vitamin B-12) 0 mcg PO DAILY 10/16/21 10/16/21 History 1,000 mcg tablet (Vitamin B-12) krill 350 mg-omega-3 90 mg-dha 24 1 cap PO DAILY 10/16/21 10/16/21 History mg-epa 50 [id number] capsule ([place]-3 Krill Oil) metoprolol succinate 100 mg 100 mg PO BID 10/16/21 10/16/21 History tablet,extended release 24 hr Patient History Medical History Acute kidney injury Anemia Chronic kidney disease, stage 3a GERD (gastroesophageal reflux disease) Heart palpitations HX OF HOLTER MONITOR, NO CONCERNS, FOLLOWS WITH DR. HEARN. Hyperlipidemia Hypertension Hypertensive urgency Hypomagnesemia Kidney stones NSTEMI (non-ST elevated myocardial infarction) PVCs (premature ventricular contractions) Renal artery stenosis Vitamin D deficiency Surgical History Fusion of spine CERVICAL, WITH BONE GRAFT gets pain in legs when moves head back History of appendectomy History of arthroscopy B/L KNEE REPAIR History of colonoscopy History of cystoscopy HX OF LASER STONE DESTRUCTION, STENT PLACEMENT AND REMOVAL, [facility] History of lymph node excision PT HAD BIOPSY OF ENLARGED LYMPH NODE OF NECK, PT LATER HAD NODE REMOVED DUE TO ENLARGEMENT. BENIGN. Nausea and vomiting after administration of anesthetic agent PT RECALLS SEVERE NAUSEA, VOMITING AND ABDOMINAL PAIN FOLLOW URINARY STENT REMOVAL ([facility]) PT UNSURE IF IT WAS AN ANESTHESIA AGENT OR NARCOTIC THAT WAS GIVEN. Family History Other No family history of adverse response to anesthesia Social History Smoking Status: Current every day smoker Cigarettes Per Day: 10 a day; Second Hand Exposure: Yes; Hx Alcohol Use: No Hx Substance Use: No Preferred Language: Latvian Communication Ability: Effective Sole Stapler Welt Required: No Beliefs That Will Affect Care: None Current Living Situation: Family Current Living Situation Comment: Lives with son Feels Safe at Home: Yes Assistive Devices: None Review of Systems Review of Systems: detailed review of system was otherwise unremarkable except mentioned above in HPI. Physical Exam Constitutional: WD/WN, vitals as above no acute distress Eyes: + anicteric sclerae ENMT: Ears: no hearing impairment Neck: normal visual inspection Thyroid: no thyromegaly Respiratory: normal respiratory effort; no respiratory distress and no cough Auscultation: lungs clear to auscultation bilaterally Cardiovascular: Rate/Rhythm: regular rate and regular rhythm Heart Sounds: normal S1 and normal S2 Extremities: no edema Gastrointestinal (Abdomen): Inspection/Auscultation: abdomen normal to inspection and normal bowel sounds Percussion/Palpation: abdomen soft; abdomen nontender Musculoskeletal: Extremities: extremities normal to inspection Skin: no rashes Neurologic: no focal motor deficits and not confused Psychiatric: Orientation: alert and oriented x 3 Affect: euthymic affect Results & Data ([facility]) Vital Signs (Past 12 Hours) Vital Signs Temp Pulse Pulse Resp BP BP BP 10/17/21 08:00 36.9 C 69 18 123/70 10/17/21 07:17 74 10/17/21 03:00 36.9 C 73 20 159/72 H 10/17/21 02:11 68 10/17/21 01:06 10/17/21 01:06 36.8 C 68 18 144/79 H 10/16/21 23:01 75 19 154/63 H Pulse Ox O2 Del Method 10/17/21 08:00 92 Room Air 10/17/21 07:17 10/17/21 03:00 96 Room Air 10/17/21 02:11 10/17/21 01:06 Room Air 10/17/21 01:06 95 Room Air 10/16/21 23:01 95 Room Air PG Care Time/CCT Total # of Minutes Spent Total Time Spent with Patient: Total time spent is greater than 50% in coordination of care (as documented) at patient's floor/unit and/or counseling patient: Coding Level of Care Code 87786 Initial Inpt Care Lvl 3 Diagnoses Hypomagnesemia E83.42 Chronic kidney disease, stage 3a N18.3 Hypertension I10 GERD (gastroesophageal reflux disease) K21.9
--- NOTE | 2021-10-17 17:46 | Electrocardiogram Report ---
Test Reason : Blood Pressure : / mmHG Vent. Rate : 075 BPM Atrial Rate : 075 BPM P-R Int : 144 ms QRS Dur : 090 ms QT Int : 400 ms P-R-T Axes : 019 -53 039 degrees QTc Int : 446 ms Normal sinus rhythm Incomplete right bundle branch block Left axis deviation Abnormal ECG When compared with ECG of 14-SEP-2020 17:46, No significant change was found Confirmed by Carlos Back ([id number]) on 10/17/2021 5:45:28 PM Referred By: REFERRED SELF Confirmed By:Leland Back
--- NOTE | 2021-10-17 19:27 | Discharge Summary ---
Date of Service October 17, 2021 Admission HPI Per Admitting Provider Pt is a 70 yo male with PMH of HTN, HLD, GERD, CKD, and AZ s/p cath with no stent placement presenting for low magnesium seen on outpatient labs. Pt explains that he had routine labs drawn on Friday for his outpatient provider. Today, he was notified that the results showed he is anemic and had extremely low magnesium. He has never been told that he was anemic before. He did have an episode similar to this last year where his magnesium was low and he was told to go to the hospital for treatment. It was recommended that he be on oral magnesium supplementation after that episode but the pt may have misunderstood and he only bought and took 1 bottle of supplements then quit. Therefore, he has not been taking any supplementation for many months. The only symptoms the pt has noticed is that he feels very fatigued over the last few days. Today, he had a few episodes of sharp, stabbing chest pain. Currently, he is not experiencing chest pain. Pt had a heart attack 1-2 years ago where he did not have any chest pain but his "blood tests" showed that he was having a heart attack. He had a cardiac cath done but no stent was necessary. He does explain that he has had heart palpitations since he was 26 years old. He has had multiple event/holter monitors since then. He describes that he used to feel that his palpitations were like an extra beat, but now they are more like a run of fast beats. These episodes last for about 20 seconds and he usually terminates them by coughing. He has not noticed any increase or change in the heart palpitations recently. He also describes "kaleidoscope vision" over the last few weeks to months for which he has spoken to his outpatient physician about. He is scheduled for a brain MRI. Otherwise, he denies SOB, cough, headaches, abdominal pain, and neurologic defic its of any kind. In the ER, his magnesium was 0.5. His other electrolytes were within normal limits. Troponin was negative at 4.6. B12 and folate were normal. Iron low normal at 45, ferritin 131.5. Hgb was low at 9.8 with MCV of 86.7. His EKG showed sinus bradycardia with a new incomplete RBBB. CXR was negative. He was given 2 grams of magnesium IV while in the ER. Principal Diagnosis hypomagnesemia Discharge Exam The patient appeared well nourished and normally developed. Vital signs as documented. Head exam is normocephalic atraumatic Neck is without JVD, thyromegaly, or carotid bruits. Lungs are clear to auscultation, no focal loss of breath sounds Cardiac exam, Rhythm is regular.. No murmurs, rubs or gallops. Abdominal exam reveals normal bowel sounds, soft non tender, no masses Extremities are nonedematous and both pedal pulses are present Neurologic exam is alert and oriented, no focal loss of strength or sensation Skin is without bruises or rashes Psychologically is without concerns for anxiety or depression.. Discharge Data Allergies Allergy/AdvReac Type Severity Reaction Status Date / Time bee venom protein (honey bee) Allergy Intermediate EXTRA Verified 10/16/21 23:22 SWELLING OF SITE Consultations 10/16/21 20:27 ED Decision to Admit Stat 10/17/21 08:18 Consult Nephrology Routine Hospital Course (1) Hypomagnesemia: Pt is a 70 yo male with PMH of HTN, HLD, GERD, CKD, and AZ s/p cath with no stent placement presenting for low magnesium seen on outpatient labs. Hypomagnesemia - asymptomatic - 0.5 on admission -given 8 gms of magnesium on presentation - urine random Cr and Mg pending -Patient follows Dr. Diaz she recommends Slow-Mag 2 mg twice daily with outpatient labs in 2 days after discharge. Patient will follow Dr. Funes in the [facility] office Anemia - Hgb 9.8 on admissionstable during this stay - previously (09/2020) 12.3 - no signs of bleeding - B12, folate normal - iron 45, ferritin 131.5 Chest painresolved - occurred earlier in the day, not present in ER - EKG showed sinus bradycardia with new incomplete RBBB - trop neg at 4.6 - no further workup CKD III - Cr on admission: 1.27 - Baseline appears to be around 1.2-1.3 - continue to monitor HTN - most recent - continue home meds: 100 mg BID, lisinopril 40 mg daily, chlorthalidone 25 mg daily, amlodipine 10 mg daily HLD - continue home atorvastatin 40 mg HS (2) Anemia: (3) Chronic kidney disease, stage 3a: (4) Hypertension: (5) Hyperlipidemia: Plan Diet: heart healthy Fluids/electrolytes: magnesium 1g bags x6 (+2 from ER) Code: full DVT ppx: lovenox 40 mg Dispo: med/tele Total Time Total Time Spent Total Time Spent (In Minutes): It required greater than 30 minutes to prepare this patient for discharge Discharge Plan Discharge Items Patient Disposition: Home - Self-Care Reason For Visit: HYPOMAGNESIUM Discharge Diagnosis: hypomagnesemia Activity: Per Instructions section Non-emergency contact: Primary Care Provider and City Controller Call non-emergency contact if: your symptoms worsen Follow-up/Referrals: Paris Steward PA-C [Primary Care Provider] - 10/29/21 8:00 am Diet: Regular Ambulatory Orders: Basic Metabolic Panel (Routine) Timeframe: 2 Days Location: Determined by Patient Ordered By: Coy Kramer Magnesium (Routine) Timeframe: 2 Days Location: Determined by Patient Ordered By: Coy Kramer Addtl Attending Provider Instructions: please continue your current medications and take additional magnesium supplemnentation follow up with labs this thursday 10/19, and follow up with your pcp Pending Studies at Discharge: No Stand-Alone Forms: My EVIIVO, Smoking Cessation Medications and DC Order Prescriptions: New magnesium citrate 100 mg tablet 200 mg PO BID Qty: 120 4RF Continued atorvastatin 40 mg tablet 40 mg PO HS Qty: 90 1RF tadalafil 20 mg tablet 20 mg PO ONCE PRN (Reason: sexual activity) Qty: 10 5RF amlodipine 10 mg tablet 10 mg PO DAILY Qty: 90 3RF lisinopril 40 mg tablet 40 mg PO DAILY Qty: 90 0RF niacin 100 mg tablet 100 mg PO HS esomeprazole magnesium 20 mg tablet,delayed release (DR/EC) 20 mg PO DAILY diphenhydramine HCl [Benadryl] 25 mg capsule 25 mg PO QPM chlorthalidone 25 mg tablet 25 mg PO DAILY Qty: 90 3RF cyanocobalamin (vitamin B-12) [Vitamin B-12] 1,000 mcg Tablet 0 mcg PO DAILY ascorbate calcium (vitamin C) 500 mg Tablet 1,000 mg PO DAILY Burtrum-3 Krill Oil [id number] mg Capsule 1 cap PO DAILY Rx Instructions: Unsure of dose metoprolol succinate 100 mg tablet extended release 24 hr 100 mg PO BID Discharge Orders: Discharge Order (Routine); Ordered 10/17/21 Ordered By: Coy Muñoz/Other Patient Handouts: Magnesium (Blood), Hypomagnesemia Dc, Hypomagnesemia Ch Dc Admission Data Admit Date/Time: 10/16/21 22:36 Attending Provider: Coy Kramer Admit Provider: Kinga Craven Primary Care Provider: Paris Steward Other Providers: Marzena Beltran Fahima Other Interventions: Discharge Summary Assessment (RN) Last Done: 10/17/21 14:05 Coding Level of Care Code D/C DAY MANAGEMENT >30 MINS Diagnoses Hypomagnesemia E83.42 Anemia D64.9 Chronic kidney disease, stage 3a N18.3 Hypertension I10 Hyperlipidemia E78.5
[2021-10-17] MEDS ORDERED: ATORVASTATIN 40 MG TAB PO SCH (21:00)
[2021-10-17] MEDS ORDERED: diphenhydrAMINE Capsule 25 MG CAP PO SCH (21:00)
[2021-10-17] MEDS ORDERED: lisinopril 40 MG TAB PO SCH (21:00)
== END 2021-10-17 14:20 | disposition home or self-care (01) ==
LOC: 2N 16:52 → ED 16:52 → SUATTDRO 22:36 → 2N 10-17 00:43

== ENCOUNTER 2024-04-15 18:40 | Inpatient (IN) ==
--- NOTE | 2024-04-15 19:07 | Emergency Department Note ---
Impression & Plan Acute hypoxic respiratory failure, Leukocytosis, Transaminitis, Abdominal pain ED Provider Note NAME: ARVIN DACOSTA AGE: 73 SEX: M : 1950 ARRIVES VIA: Walk-In INFORMANT: Patient ED PROVIDER(S): Chase Santamaria DO CHIEF COMPLAINT: Fevers HPI: Patient is a 73-year-old male with a past medical history of dyslipidemia, obesity, anemia, sore throat, hypertension hyperlipidemia who presents to the ER for left upper quadrant abdominal pain which started on Friday. He notes that last week he had urinary symptoms starting Friday and he started antibiotics on Friday as they were switched from Bactrim to another medication due to resistance. He no longer has dysuria, urgency, or frequency. He denies any headache or change in vision. He admits to having shortness of breath earlier today but that resolved. No chest pain. He admits to a cough. No vomiting. No other exacerbating or remitting factors. ADDITIONAL HISTORY OBTAINED: Per HPI Chronic Medical/Social Conditions Affecting Care: Per HPI PAST MEDICAL HISTORY:See Below PAST SURGICAL HISTORY:See Below FAMILY HISTORY:See Below SOCIAL HISTORY:See Below HOME MEDICATIONS:See Below ALLERGIES:See Below VITALS:See Below PHYSICAL EXAMINATION: GENERAL: Sitting up in bed, alert, well appearing, well nourished, no distress, non-toxic EYE EXAM: normal conjunctiva. OROPHARYNX: no exudate, no erythema, lips, buccal mucosa, and tongue normal and mucous membranes are moist NECK: supple, no nuchal rigidity, no adenopathy, non-tender LUNGS: Clear to auscultation. Normal chest wall mechanics HEART: no murmurs, S1 normal and S2 normal ABDOMEN: abdomen soft, TTP in LUQ, normo-active bowel sounds, no masses, no rebound or guarding. BACK: Back is symmetrical on inspection and there is no deformity, no midline tenderness, no CVA tenderness. SKIN: no rashes and no bruising UPPER EXTREMITIES: upper extremities are grossly normal. LOWER EXTREMITIES: No pitting edema. Calves are equal bilaterally NEURO EXAM: Normal sensorium, cranial nerves II-XII grossly intact, normal speech, no gross weakness of arms, no gross weakness of legs. MEDICAL DECISION MAKING: Patient is a 73-year-old male who presents ER for the above-stated complaint. IV was established and blood work was obtained. Labs show a leukocytosis of 13,000. Mild anemia at 13. INR unremarkable. BMP along with LFTs bilirubin is unremarkable. Troponin was negative. Bio fire was negative. Patient was slightly hypoxic. Was placed on [address] of the chest was negative. CT of the abdomen was unremarkable. Patient was given fluids, Zosyn, morphine and Toradol. Patient was discussed with the hospitalist for further evaluation management treatment. Consults/Care Managements Discussions: Per [facility] Triage Nursing notes reviewed. Limited review of prior medical records performed Vital Signs: reviewed and remarkable for HTN and tachy Differential diagnosis: Differential diagnosis includes etiologies such as sepsis, UTI, pneumonia, metabolic, electrolyte abnormalities, cardiac sources, intracerebral event, toxicologic, neurological, as well as others were entertained. ER treatment provided: See below Diagnostics interpreted by me include EKG and cardiac monitoring as listed below: -Cardiac Monitoring: An order was placed for continuous cardiac monitoring. The monitor shows a rate of 90 with sinus rhythm. -ECG: Sinus rhythm rate of 91 Normal axis No PVCs QTc 447 -Laboratory studies:Interpreted by me as stated above in MDM and shown below. Imaging studies: Xrays: As interpreted by me: Portable AP upright 1 view of the chest shows no focal infiltrate CTs show: CT angio and abdomen pelvis was negative Procedures:none Critical Care: I have personally spent 33 minutes of critical care time in the direct management of this patient. This includes bedside care, interpretation of diagnostic studies, and testing, discussion with consultants, patient, and family members, and other required patient management activities. This 33 minutes is in excess of all separately billable procedures. Past Med/Surg History Problem List (Updated 04/16/24 @ 00:01 by Chase Santamaria DO) Abdominal pain (Acute) Transaminitis (Acute) Leukocytosis (Acute) Acute hypoxic respiratory failure (Acute) Hypertension Anemia Obesity Heartburn Dysmetabolic syndrome X Dyslipidemia Atypical chest pain Mild CAD Heart palpitations PVC,PAC on Holter Colon cancer screening Encounter for pre-operative examination Heme positive stool Hypomagnesemia (Acute) Vision changes Sore throat Excess sun exposure Pain of left breast Weight loss Sore throat Vitamin D deficiency Sleep disorder (Chronic) Hypertension (Chronic) Hyperlipidemia (Chronic) GERD (gastroesophageal reflux disease) (Chronic) Acute kidney injury Hyperkalemia Anemia hx Renal artery stenosis Hypomagnesemia Chronic kidney disease, stage 3a PVCs (premature ventricular contractions) Medical History Palpitations Renal cyst Nocturia Insomnia Inhibited sexual excitement Cough Chronic low back pain Cervicalgia Bilateral leg numbness Hypertensive urgency NSTEMI (non-ST elevated myocardial infarction) Kidney stones GERD (gastroesophageal reflux disease) Hypertension Hyperlipidemia Surgical History History of esophagogastroduodenoscopy (EGD) History of cardiac cath History of colonoscopy Nausea and vomiting after administration of anesthetic agent History of cystoscopy History of lymph node excision Fusion of spine History of arthroscopy History of appendectomy Family History Grandfather (Paternal) Myocardial infarction Other No family history of adverse response to anesthesia Denies family history of Ovarian cancer Prostate cancer Breast cancer Colorectal cancer Social History Smoking Status: Current every day smoker Tobacco Type: Cigarettes Age Started Using Tobacco: 18; packs per day: 0.5; Cigarettes Per Day: <20; Second Hand Exposure: Yes (hx as child); Do You Dip or Chew Tobacco: No; Hx Alcohol Use: No (quit 3 years ago) Hx Substance Use: No Preferred Language: Polish Communication Ability: Effective Visual Impairment: No Limitations Hearing Ability: Normal Crane Chaser Required: No Beliefs That Will Affect Care: None marital status: Current Living Situation: Alone current occupational status: retired current occupation: [employer] How many Children do You have: 1 Feels Safe at Home: Yes Childhood Exposure to Second-Hand Smoke: Yes Diet: regular caffeine: Yes during the past year weight has: remained stable Dental Care, Regularly: No Physical Activity Frequency: Does not Exercise Seatbelt Use: always Sunscreen Use: Yes Do you think of yourself as: straight/heterosexual Gender Identity: Male Assistive Devices: None Allergies Allergies Allergy/AdvReac Type Severity Reaction Status Date / Time bee venom protein (honey bee) Allergy Intermediate EXTRA Verified 04/08/24 09:30 SWELLING OF SITE Home Meds Home Medications Medication Instructions Recorded Confirmed diphenhydramine HCl 25 mg capsule 25 mg PO HS 04/13/21 04/15/24 (Benadryl) ascorbate calcium (vitamin C) 500 1,000 mg PO QAM 10/16/21 04/15/24 mg tablet krill 350 mg-omega-3 90 mg-dha 24 1 cap PO QAM 10/16/21 04/15/24 mg-epa 50 [id number] capsule ([employer]-3 Krill Oil) niacin 100 mg tablet 100 mg PO DAILY 02/27/24 04/15/24 allopurinol 100 mg tablet 100 mg PO DAILY 04/15/24 04/15/24 Previous Rx's Medication Instructions Recorded magnesium chloride 71.5 mg 71.5 mg PO DAILY #90 tabs 11/07/22 (magnesium chloride) tablet,delayed release (Slow-Mag) famotidine 40 mg tablet (Pepcid) 40 mg PO BID #180 tabs 04/22/23 amlodipine 10 mg tablet 10 mg PO QAM #90 tabs 05/28/23 hydralazine 25 mg tablet 25 mg PO TID #300 tabs 05/28/23 tadalafil 20 mg tablet 20 mg PO UD PRN sexual activity 07/04/23 #20 tabs atorvastatin 40 mg tablet 40 mg PO HS #90 tabs 11/07/23 metoprolol succinate 100 mg 100 mg PO BID #180 tabs 11/11/23 tablet,extended release 24 hr torsemide 20 mg tablet 20 mg PO QAM #90 tabs 11/11/23 nitrofurantoin 100 mg PO Q12H 7 days #14 caps 04/12/24 monohydrate/macrocrystals 100 mg capsule (Macrobid) Results & Data (ED) Vital Signs Vital Signs - 24 hr 04/15/24 18:42 04/15/24 18:56 04/15/24 19:19 Temperature 37.7 C H Temperature Source Oral Pulse Rate 96 H 91 H Pulse Rate [Apical] Respiratory Rate 20 Respiratory Effort / Characteristics Non-Labored Spontaneous Respiratory Depth Normal Respiratory Pattern Blood Pressure 165/78 H Blood Pressure [Right Arm] Blood Pressure Mean 107 Blood Pressure Mean [Right Arm] Pulse Oximetry 92 90 Oxygen Delivery Method Room Air Room Air Nasal Cannula Oxygen Flow Rate 0 Sepsis Recent Fever Within 48 Hours Yes Sepsis New/Unexplained Change in Mental Status Yes Sepsis Action Taken by Nursing No Action Required Oxygen Flow Rate - Titration 2 Pulse Oximetry Post Tiitration 93 04/15/24 19:26 04/15/24 19:26 04/15/24 21:01 Temperature Temperature Source Pulse Rate Pulse Rate [Apical] 85 Respiratory Rate 18 Respiratory Effort / Characteristics Non-Labored Spontaneous Non-Labored Spontaneous Respiratory Depth Normal Normal Respiratory Pattern Regular Regular Blood Pressure Blood Pressure [Right Arm] 156/78 H Blood Pressure Mean Blood Pressure Mean [Right Arm] 104 Pulse Oximetry 94 96 Oxygen Delivery Method Nasal Cannula Nasal Cannula Oxygen Flow Rate 2 2 Sepsis Recent Fever Within 48 Hours Sepsis New/Unexplained Change in Mental Status Sepsis Action Taken by Nursing Oxygen Flow Rate - Titration Pulse Oximetry Post Tiitration 04/15/24 22:00 04/15/24 23:00 04/15/24 23:01 Temperature Temperature Source Pulse Rate 70 Pulse Rate [Apical] 79 72 Respiratory Rate 18 18 Respiratory Effort / Characteristics Non-Labored Spontaneous Non-Labored Spontaneous Respiratory Depth Normal Normal Respiratory Pattern Regular Regular Blood Pressure Blood Pressure [Right Arm] 153/73 H 135/63 Blood Pressure Mean Blood Pressure Mean [Right Arm] 99 87 Pulse Oximetry 93 92 Oxygen Delivery Method Nasal Cannula Nasal Cannula Oxygen Flow Rate 2 2 Sepsis Recent Fever Within 48 Hours Sepsis New/Unexplained Change in Mental Status Sepsis Action Taken by Nursing Oxygen Flow Rate - Titration Pulse Oximetry Post Tiitration Laboratory Data 04/15/24 18:56 04/15/24 18:56 Lab Results 04/15/24 04/15/24 04/15/24 Range/Units 18:56 19:09 19:15 WBC 13.05 H (4.8-10.8) K/ul RBC 4.88 (4.70-6.10) M/uL Hgb 13.0 L (14.0-18.0) g/dl POC Hgb 13.3 L (14.0-18.0) g/dl Hct 41.6 L (42.0-52.0) % POC Hct 39 L (42-52) % MCV 85.2 (80.0-100.0) fL MCH 26.6 (25.0-34.0) pg MCHC 31.3 L (32.0-36.0) g/dL RDW Std Deviation 57.1 H (36.4-46.3) fL RDW Coeff of Tariq 18.5 H (11.5-14.5) % Plt Count 203 (130-400) K/uL MPV 9.9 (9.4-12.4) fL Immature Gran % (Auto) 0.5 % Neut % (Auto) 79.8 % Lymph % (Auto) 7.4 % [place] % (Auto) 10.0 % Eos % (Auto) 1.9 % Baso % (Auto) 0.4 % Neut # (Auto) 10.41 H (1.40-6.50) K/uL Lymph # (Auto) 0.97 L (1.20-3.40) K/uL [place] # (Auto) 1.30 H (0.11-0.59) K/uL Eos # (Auto) 0.25 (0.00-0.50) K/uL Baso # (Auto) 0.05 (0.00-0.20) K/uL Immature Gran # (Auto) 0.07 (0.01-0.20) K/uL PT 10.8 (9.0-12.0) Seconds INR 1.0 (0.9-1.1) POC Sodium 137 (135-144) mmol/L Sodium 136 (136-145) mmol/L POC Potassium 4.0 (3.3-5.0) mmol/L Potassium 4.0 (3.5-5.1) mmol/L POC Chloride 100 L (101-112) mmol/L Chloride 99 (98-107) mmol/L Carbon Dioxide 28 (21-32) mmol/L POC Total CO2 27 (24-31) mmol/L Anion Gap 9 (3-11) POC Anion Gap 15.0 L (16-25) mmol/L POC BUN 22 H (7-18) mg/dl BUN 25 H (6-23) mg/dl Creatinine 1.49 H (0.6-1.4) mg/dl POC Creatinine 1.6 H (0.6-1.3) mg/dl Est Cr Clr Drug Dosing 52.3 ml/min eGFR 49.86 BUN/Creatinine Ratio 16.8 (10-20) Glucose 122 H (70-99(Fasting)) mg/dl POC Glucose (other) 125 H (70-99) mg/dl Lactate 1.2 (0.4-2.0) mmol/L Calcium 9.7 (8.6-10.3) mg/dl POC Ioniz Calcium Leonie 1.10 L (1.12-1.32) mmol/l Magnesium 1.9 (1.7-2.4) mg/dl Total Bilirubin 0.5 (0.2-1.0) mg/dl Direct Bilirubin 0.1 (0-0.2) mg/dl AST 73 H (13-39) U/L ALT 93 H (7-52) U/L Alkaline Phosphatase 119 H (34-104) U/L Troponin I High Sens 8.3 (0-20) pg/ml Total Protein 8.7 H (6.0-8.3) gm/dl Albumin 4.4 (3.4-5.0) gm/dl Procalcitonin 0.70 H (0-0.5) ng/ml Adenovirus (PCR) (NotDetected) B. pertussis DNA (PCR) (NotDetected) B.parapertussis DNA PCR (NotDetected) C. pneumoniae DNA (PCR) (NotDetected) Coronavirus OC43 (PCR) (NotDetected) Coronavirus HKU1 (PCR) (NotDetected) Coronavirus 229E (PCR) (NotDetected) SARS-CoV-2 (PCR) (NotDetected) Coronavirus NL63 (PCR) (NotDetected) Human Metapneumovir PCR (NotDetected) Influenza Type A (PCR) (NotDetected) Influenza Type B (PCR) (NotDetected) M. pneumoniae (PCR) (NotDetected) Parainfluenza 1 (PCR) (NotDetected) Parainfluenza 2 (PCR) (NotDetected) Parainfluenza 3 (PCR) (NotDetected) Parainfluenza 4 (PCR) (NotDetected) RSV (PCR) (NotDetected) Entero/Rhino (PCR) (NotDetected) 04/15/24 Range/Units 19:21 WBC (4.8-10.8) K/ul RBC (4.70-6.10) M/uL Hgb (14.0-18.0) g/dl POC Hgb (14.0-18.0) g/dl Hct (42.0-52.0) % POC Hct (42-52) % MCV (80.0-100.0) fL MCH (25.0-34.0) pg MCHC (32.0-36.0) g/dL RDW Std Deviation (36.4-46.3) fL RDW Coeff of Tariq (11.5-14.5) % Plt Count (130-400) K/uL MPV (9.4-12.4) fL Immature Gran % (Auto) % Neut % (Auto) % Lymph % (Auto) % [place] % (Auto) % Eos % (Auto) % Baso % (Auto) % Neut # (Auto) (1.40-6.50) K/uL Lymph # (Auto) (1.20-3.40) K/uL [place] # (Auto) (0.11-0.59) K/uL Eos # (Auto) (0.00-0.50) K/uL Baso # (Auto) (0.00-0.20) K/uL Immature Gran # (Auto) (0.01-0.20) K/uL PT (9.0-12.0) Seconds INR (0.9-1.1) POC Sodium (135-144) mmol/L Sodium (136-145) mmol/L POC Potassium (3.3-5.0) mmol/L Potassium (3.5-5.1) mmol/L POC Chloride (101-112) mmol/L Chloride (98-107) mmol/L Carbon Dioxide (21-32) mmol/L POC Total CO2 (24-31) mmol/L Anion Gap (3-11) POC Anion Gap (16-25) mmol/L POC BUN (7-18) mg/dl BUN (6-23) mg/dl Creatinine (0.6-1.4) mg/dl POC Creatinine (0.6-1.3) mg/dl Est Cr Clr Drug Dosing ml/min eGFR BUN/Creatinine Ratio (10-20) Glucose (70-99(Fasting)) mg/dl POC Glucose (other) (70-99) mg/dl Lactate (0.4-2.0) mmol/L Calcium (8.6-10.3) mg/dl POC Ioniz Calcium Leonie (1.12-1.32) mmol/l Magnesium (1.7-2.4) mg/dl Total Bilirubin (0.2-1.0) mg/dl Direct Bilirubin (0-0.2) mg/dl AST (13-39) U/L ALT (7-52) U/L Alkaline Phosphatase (34-104) U/L Troponin I High Sens (0-20) pg/ml Total Protein (6.0-8.3) gm/dl Albumin (3.4-5.0) gm/dl Procalcitonin (0-0.5) ng/ml Adenovirus (PCR) Not Detected (NotDetected) B. pertussis DNA (PCR) Not Detected (NotDetected) B.parapertussis DNA PCR Not Detected (NotDetected) C. pneumoniae DNA (PCR) Not Detected (NotDetected) Coronavirus OC43 (PCR) Not Detected (NotDetected) Coronavirus HKU1 (PCR) Not Detected (NotDetected) Coronavirus 229E (PCR) Not Detected (NotDetected) SARS-CoV-2 (PCR) Not Detected (NotDetected) Coronavirus NL63 (PCR) Not Detected (NotDetected) Human Metapneumovir PCR Not Detected (NotDetected) Influenza Type A (PCR) Not Detected (NotDetected) Influenza Type B (PCR) Not Detected (NotDetected) M. pneumoniae (PCR) Not Detected (NotDetected) Parainfluenza 1 (PCR) Not Detected (NotDetected) Parainfluenza 2 (PCR) Not Detected (NotDetected) Parainfluenza 3 (PCR) Not Detected (NotDetected) Parainfluenza 4 (PCR) Not Detected (NotDetected) RSV (PCR) Not Detected (NotDetected) Entero/Rhino (PCR) Not Detected (NotDetected) Administered Medications Acetaminophen (Ofirmev) 1,000 mg in 100 mls @ 400 mls/hr IV Q8 RIAZ Stop: 04/18/24 21:59 Last Infusion: 04/15/24 21:53 Dose: Infused Documented By: Admin: 04/15/24 21:38 Dose: 400 mls/hr Documented By: GCC Discontinued Medications Sodium Chloride (Nss) 1,000 mls @ 999 mls/hr IV .Q1H1M ONE Stop: 04/15/24 20:02 Last Infusion: 04/15/24 20:16 Dose: Infused Documented By: Admin: 04/15/24 19:15 Dose: 999 mls/hr Documented By: BRUCE Piperacillin Sod/Tazobactam Sod (Zosyn) 4.5 gm in 100 mls @ 200 mls/hr IV NOW ONE; Protocol Stop: 04/15/24 19:33 Last Infusion: 04/15/24 19:43 Dose: Infused Documented By: Admin: 04/15/24 19:13 Dose: 200 mls/hr Documented By: BRUCE Ioversol (Optiray 320 125ml) 115 ml IV ONCE ONE Stop: 04/15/24 19:34 Last Admin: 04/15/24 19:33 Dose: 115 ml Documented By: CANDICE Ketorolac Tromethamine (Ketorolac Tromethamine 15 Mg/Ml Vial) 10 mg IV Q8 RIAZ Stop: 04/20/24 21:59 Last Admin: 04/15/24 21:40 Dose: 10 mg Documented By: BRUCE Morphine Sulfate (Morphine Sulfate 4 Mg/Ml 1 Ml Carp\Vial) 4 mg IV NOW STA Stop: 04/15/24 19:54 Last Admin: 04/15/24 19:56 Dose: 4 mg Documented By: BRUCE Imaging Data Radiologist's Impression: Abdomen/Pelvis CT 04/15/24 19:02 EXAMINATION: CT of the abdomen and pelvis performed after the administration of IV contrast TECHNIQUE: Helical CT images from the lung bases through the symphysis pubis were obtained with contrast. Coronal and sagittal reformatted images were generated at a workstation for further assessment. Dose reduction techniques were achieved by using automatic exposure control and/or adjustment of mA and/or kV according to patient size and/or use of iterative reconstruction technique. COMPARISON: None HISTORY: Abdominal pain FINDINGS: Lower chest: No consolidation. No pleural effusion or pneumothorax. Liver: No suspicious liver lesions. Portal veins appear patent. Gallbladder: No gallstones. No evidence of acute cholecystitis. Spleen: Normal size. Pancreas: No suspicious pancreatic lesions. The pancreatic duct is not dilated. Adrenal glands: No adrenal nodules. Kidneys: No hydronephrosis or obstructing renal stones. Scattered small bilateral renal cysts. Symmetric nephrograms. Bladder / Pelvic organs: There is mild wall thickening and fat stranding about the urinary bladder.. Bowel: No bowel obstruction. No abnormal bowel wall thickening. The appendix is surgically absent. Lymph nodes: No retroperitoneal, mesenteric, or pelvic lymphadenopathy. Peritoneum / Retroperitoneum: No free fluid or air within the abdomen. Vessels: No infrarenal aortic aneurysm. Moderate aortoiliac calcification. Bones and soft tissues: No suspicious lesion in the bones. Small fatty umbilical hernia. IMPRESSION: Mild wall thickening and some fat stranding about the urinary bladder, suggestive of cystitis. No other acute findings in the abdomen or pelvis. Electronically signed by Carlos Farmer 04-15-2024 8:07 PM Chest CTA 04/15/24 19:02 CT pulmonary angiogram with IV contrast History: Chest pain COMPARISON: None TECHNIQUE: CT angiography of the chest was performed without IV contrast followed by IV contrast, including 3D post processing CTA image reconstruction. Dose reduction techniques were achieved by using automatic exposure control and/or adjustment of mA and/or kV according to patient size and/or use of iterative reconstruction technique. FINDINGS: Diagnostic quality: Adequate There is no evidence for pulmonary embolism. The heart is not enlarged. There is no pericardial effusion. There are no abnormally enlarged hilar or mediastinal lymph nodes. The central tracheobronchial tree is clear. The lungs are clear. There is no pleural effusion. Limited visualized upper abdomen. No destructive osseous changes are seen. IMPRESSION: No evidence for pulmonary embolism. Electronically signed by Carlos Farmer 04-15-2024 8:09 PM Chest X-Ray 04/15/24 19:02 Chest radiograph, one view History: Chest pain Comparison: 10/16/2021 Findings: Single AP view of the chest performed. No focal consolidation or pleural effusion. No pneumothorax. The cardiomediastinal silhouette is within normal limits. Normal pulmonary vascularity. No evidence for lymphadenopathy. No visualized bony or soft tissue abnormality. Impression: Normal chest radiograph Electronically signed by Carlos Farmer 04-15-2024 8:09 PM Discharge Plan Visit Data Chief Complaint: Shortness of Breath/Dyspnea Stated Complaint: FEVER W ANTIBIOTICS, ABD PAIN, TROUBLE BREATHING ED Provider: Chase Santamaria Discharge Problem: Acute hypoxic respiratory failure, Leukocytosis, Transaminitis, Abdominal pain Forms Stand Alone Forms: [facility] Prescriptions Prescriptions: No Action Slow-Mag 71.5 mg tablet,delayed release (DR/EC) 71.5 mg PO DAILY Qty: 90 3RF famotidine [Pepcid] 40 mg tablet 40 mg PO BID Qty: 180 3RF amlodipine 10 mg tablet 10 mg PO QAM Qty: 90 3RF hydralazine 25 mg tablet 25 mg PO TID Qty: 300 3RF Rx Instructions: Take 1 extra 25 mg in the evening tadalafil 20 mg tablet 20 mg PO UD PRN (Reason: sexual activity) Qty: 20 3RF Rx Instructions: take once atorvastatin 40 mg tablet 40 mg PO HS Qty: 90 1RF metoprolol succinate 100 mg tablet extended release 24 hr 100 mg PO BID Qty: 180 1RF torsemide 20 mg tablet 20 mg PO QAM Qty: 90 3RF nitrofurantoin monohyd/m-cryst [Macrobid] 100 mg capsule 100 mg PO Q12H 7 Days Qty: 14 0RF Rx Instructions: must administer with a meal/food niacin 100 mg tablet 100 mg PO DAILY diphenhydramine HCl [Benadryl] 25 mg capsule 25 mg PO HS ascorbate calcium (vitamin C) 500 mg Tablet 1,000 mg PO QAM [id number] [[employer]-3 Krill Oil] 719-34-09-50 mg Capsule 1 cap PO QAM Rx Instructions: Unsure of dose allopurinol 100 mg tablet 100 mg PO DAILY Referrals Referrals: Erinn Evangelista CRNP [Nurse Practitioner] - Discharge Problem: Leukocytosis Qualifiers: Leukocytosis type: unspecified Qualified Code(s): D72.829 - Elevated white blood cell count, unspecified Abdominal pain Qualifiers: Abdominal location: unspecified location Qualified Code(s): R10.9 - Unspecified abdominal pain
[2024-04-15] MEDS: PIPERACILLIN/TAZOBACTAM 4.5 GM/100 ML BAG IV ONE (19:13)
[2024-04-15] MEDS: SODIUM CHLORIDE 0.9% 1,000 ML IV ONE (19:15)
[2024-04-15 19:27] LABS: iSTAT Creatinine 1.6 mg/dl (0.6-1.3); iSTAT Hemoglobin 13.3 g/dl (14.0-18.0); iSTAT Ionized Calcium 1.1 mmol/l (1.12-1.32)
[2024-04-15] MEDS: OPTIRAY 320 125ml IV ONE (19:33)
[2024-04-15 19:37] LABS: Basophils # (auto) 0.05 K/uL (0.00-0.20); Basophils % (auto) 0.4 %; Eosinophils # (auto) 0.25 K/uL (0.00-0.50); Eosinophils % (auto) 1.9 %; Hematocrit (blood only) 41.6 % (42.0-52.0); Immature Granulocytes # (auto) 0.07 K/uL (0.01-0.20); Immature Granulocytes % (auto) 0.5 %; Lymphocytes # (auto) 0.97 K/uL (1.20-3.40); Lymphocytes % (auto) 7.4 %; Mean Corpuscular Hemoglobin 26.6 pg (25.0-34.0); Mean Corpuscular Hgb Conc 31.3 g/dL (32.0-36.0); Mean Corpuscular Volume 85.2 fL (80.0-100.0); Mean Platelet Volume 9.9 fL (9.4-12.4); Neutrophils # (auto) 10.41 K/uL (1.40-6.50); Neutrophils % (auto) 79.8 %; Platelet Count 203 K/uL (130-400); RDW Coefficient of Variation 18.5 % (11.5-14.5); RDW Standard Deviation 57.1 fL (36.4-46.3); Red Blood Count 4.88 M/uL (4.70-6.10); White Blood Count 13.05 K/ul (4.8-10.8)
[2024-04-15 19:49] LABS: Albumin Level 4.4 gm/dl (3.4-5.0); BUN Creatinine Ratio 16.8 (10-20); Bilirubin Direct 0.1 mg/dl (0-0.2); Bilirubin,Total 0.5 mg/dl (0.2-1.0); Calcium 9.7 mg/dl (8.6-10.3); Creatinine Clr Calc Pharmacy 52.3 ml/min; Magnesium 1.9 mg/dl (1.7-2.4); Total Protein 8.7 gm/dl (6.0-8.3)
[2024-04-15 19:55] LABS: Troponin I High Sensitivity 8.3 pg/ml (0-20)
[2024-04-15] MEDS: MoRPHine SULFATE 4 MG/ML 1 ML CARP\\VIAL IV STA (19:56)
[2024-04-15 20:06] LABS: Prothrombin Time 10.8 Seconds (9.0-12.0)
--- NOTE | 2024-04-15 20:08 | CT Scan Report ---
EXAMINATION: CT of the abdomen and pelvis performed after the administration of IV contrast TECHNIQUE: Helical CT images from the lung bases through the symphysis pubis were obtained with contrast. Coronal and sagittal reformatted images were generated at a workstation for further assessment. Dose reduction techniques were achieved by using automatic exposure control and/or adjustment of mA and/or kV according to patient size and/or use of iterative reconstruction technique. COMPARISON: None HISTORY: Abdominal pain FINDINGS: Lower chest: No consolidation. No pleural effusion or pneumothorax. Liver: No suspicious liver lesions. Portal veins appear patent. Gallbladder: No gallstones. No evidence of acute cholecystitis. Spleen: Normal size. Pancreas: No suspicious pancreatic lesions. The pancreatic duct is not dilated. Adrenal glands: No adrenal nodules. Kidneys: No hydronephrosis or obstructing renal stones. Scattered small bilateral renal cysts. Symmetric nephrograms. Bladder / Pelvic organs: There is mild wall thickening and fat stranding about the urinary bladder.. Bowel: No bowel obstruction. No abnormal bowel wall thickening. The appendix is surgically absent. Lymph nodes: No retroperitoneal, mesenteric, or pelvic lymphadenopathy. Peritoneum / Retroperitoneum: No free fluid or air within the abdomen. Vessels: No infrarenal aortic aneurysm. Moderate aortoiliac calcification. Bones and soft tissues: No suspicious lesion in the bones. Small fatty umbilical hernia. IMPRESSION: Mild wall thickening and some fat stranding about the urinary bladder, suggestive of cystitis. No other acute findings in the abdomen or pelvis. Electronically signed by Carlos Farmer 04-15-2024 8:07 PM
--- NOTE | 2024-04-15 20:09 | XRay Report ---
Chest radiograph, one view History: Chest pain Comparison: 10/16/2021 Findings: Single AP view of the chest performed. No focal consolidation or pleural effusion. No pneumothorax. The cardiomediastinal silhouette is within normal limits. Normal pulmonary vascularity. No evidence for lymphadenopathy. No visualized bony or soft tissue abnormality. Impression: Normal chest radiograph Electronically signed by Carlos Farmer 04-15-2024 8:09 PM
--- NOTE | 2024-04-15 20:09 | CT Scan Report ---
CT pulmonary angiogram with IV contrast History: Chest pain COMPARISON: None TECHNIQUE: CT angiography of the chest was performed without IV contrast followed by IV contrast, including 3D post processing CTA image reconstruction. Dose reduction techniques were achieved by using automatic exposure control and/or adjustment of mA and/or kV according to patient size and/or use of iterative reconstruction technique. FINDINGS: Diagnostic quality: Adequate There is no evidence for pulmonary embolism. The heart is not enlarged. There is no pericardial effusion. There are no abnormally enlarged hilar or mediastinal lymph nodes. The central tracheobronchial tree is clear. The lungs are clear. There is no pleural effusion. Limited visualized upper abdomen. No destructive osseous changes are seen. IMPRESSION: No evidence for pulmonary embolism. Electronically signed by Carlos Farmer 04-15-2024 8:09 PM
[2024-04-15 20:21] LABS: Adenovirus PCR Not Detected (NotDetected); Bordetella parapertussis PCR Not Detected (NotDetected); Bordetella pertussis PCR Not Detected (NotDetected); Chlamydia pneumoniae PCR Not Detected (NotDetected); Coronavirus 229E PCR Not Detected (NotDetected); Coronavirus CoV-2 (COVID19)PCR Not Detected (NotDetected); Coronavirus HKU1 PCR Not Detected (NotDetected); Coronavirus NL63 PCR Not Detected (NotDetected); Coronavirus OC43PCR Not Detected (NotDetected); Human Metapneumovirus PCR Not Detected (NotDetected); Influenza A PCR Not Detected (NotDetected); Influenza B PCR Not Detected (NotDetected); Mycoplasma pneumoniae PCR Not Detected (NotDetected); Parainfluenza Virus 1 PCR Not Detected (NotDetected); Parainfluenza Virus 2 PCR Not Detected (NotDetected); Parainfluenza Virus 3 PCR Not Detected (NotDetected); Parainfluenza Virus 4 PCR Not Detected (NotDetected); Respiratory Syncytial VirusPCR Not Detected (NotDetected); Rhinovirus/Enterovirus PCR Not Detected (NotDetected)
--- NOTE | 2024-04-15 20:50 | History & Physical Report ---
Date of Service April 15, 2024 Assessment & Plan (1) Abdominal pain: (2) Transaminitis: (3) Leukocytosis: (4) Hypertension: (5) Hypertension: (6) Hyperlipidemia: (7) GERD (gastroesophageal reflux disease): (8) Acute kidney injury: (9) Chronic kidney disease, stage 3a: Plan #Left upper quadrant pain #UTI /Cystitis #Fever #Elevated leukocytosis - Presented with pain in the left upper quadrant X 2 days, fever with chills - O/E: slightly tender left upper quadrant -DD: Cystitis vs MSK vs referred gall bladder pathology vs GERD vs gastritis - labs: WBC: 13.05, Procal 0.70, - Biofire test: Negative - Urine culture(04/08): Positive for Klebsiella oxytoc (Sensitive to Zosyn, bactrim, resistant ceftriaxone) - Chest radiograph: No any acute findings -CT angio: No evidence of Pulmonary Embolism - CT (A+P): Suggestive of cystitis. no other acute findings in abdomen or pelvis - UTI being treated outpatient with Bactrim initially then switched to Nitrofurantoin(since 4 days) Plan: - Pain management: Tylenol q8hrs PRN, tramadol PRN - Will start on Zosyn q8hr; can transit to Nitrofurantoin on discharge -Continue home Famotidine -Follow up Urine RE and Urine Culture during this admission -Follow up Blood Culture -Monitor Fever and WBC Curve -Follow up Echo # ERIN on CKD 3 -Creatine: 1.49; Baseline creatine: 1.2 -Likely Prerenal in the setting of infection Plan -Will give sodium Chloride 100ml /hr for 12 hrs. -Avoid nephrotoxic Medication -Monitor volume status, electrolytes and renal function -Consider Nephrology consult if kidney function continue to worsen #Transamnitis - AST: 73 ALT: 93 - CT(A+P)- No gallbladder /liver pathology -Likely reactive 2/2 infection -Consider RUQ US if continue to rise #Hypertension: Continue home amlodipine 10 mg daily , Hydralazine 25 mg TID and metoprolol 100 mg BID # Gout: Continue Allopurinol #Hyperlipidemia: Hold Atorvastatin in setting of Transaminitis Dispo: Med/Surg Code: Full Code VTE prophylaxis: Heparin History of Present Illness Chief Complaint: left upper quadrant abdominal pain Primary Care Provider: WOLFGANG Chu is a 73 Y O Male with PMH of Dyslipidemia, NSTEMI, Gout,Hypertension, Obesity, Anemia, CAD GERD and Chronic Kidney Disease Stage 3 A presented to ER with left upper quadrant abdominal pain which started last night when he was eating vegetable Soup. He took Tylenol for pain He wasn't able to sleep well due to pain. Pain started worsening this morning. Denies any nausea, vomiting, bloating, belching, acid reflux, diarrhea and constipation He also had urinary symptoms like burning urination towards the end of urination started last week Friday. He went to see his PA on Friday and was started on antibiotics Bactrim . Culture was positive for Klebsiella and Bactrim was switched to Nitrofurantoin. He denies urinary symptoms right now. Denies blood in urine and weak stream urine. He had a fever With Maximum Recorded Temperature 102.3 associated with chills. He reported he met his grandson that day after which he started having fever. He also had fever 1 week prior. No rashes, joint pain or ulcers in mouth Admit to having Shortness of breath earlier today when he was taking shower lasted for 2 -3 minutes. Associated with cough. Mostly dry. Denies chest pain. Normal Bowel Habit .Appetite is normal. He is smoker and started smoking at the age of 19. He smokes less than a pack per day. He doesn't consume alcohol. 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 Allergies Allergy/AdvReac Type Severity Reaction Status Date / Time bee venom protein (honey bee) Allergy Intermediate EXTRA Verified 04/08/24 09:30 SWELLING OF SITE Home Medications Medication Instructions Recorded Confirmed Type diphenhydramine HCl 25 mg capsule 25 mg PO HS 04/13/21 04/15/24 History (Benadryl) ascorbate calcium (vitamin C) 500 1,000 mg PO QAM 10/16/21 04/15/24 History mg tablet krill 350 mg-omega-3 90 mg-dha 24 1 cap PO QAM 10/16/21 04/15/24 History mg-epa 50 [id number] capsule ([place]-3 Krill Oil) magnesium chloride 71.5 mg 71.5 mg PO DAILY #90 tabs 11/07/22 04/15/24 Rx (magnesium chloride) tablet,delayed release (Slow-Mag) famotidine 40 mg tablet (Pepcid) 40 mg PO BID #180 tabs 04/22/23 04/15/24 Rx amlodipine 10 mg tablet 10 mg PO QAM #90 tabs 05/28/23 04/15/24 Rx hydralazine 25 mg tablet 25 mg PO TID #300 tabs 05/28/23 04/15/24 Rx tadalafil 20 mg tablet 20 mg PO UD PRN sexual activity 07/04/23 04/15/24 Rx #20 tabs atorvastatin 40 mg tablet 40 mg PO HS #90 tabs 11/07/23 04/15/24 Rx metoprolol succinate 100 mg 100 mg PO BID #180 tabs 11/11/23 04/15/24 Rx tablet,extended release 24 hr torsemide 20 mg tablet 20 mg PO QAM #90 tabs 11/11/23 04/15/24 Rx niacin 100 mg tablet 100 mg PO DAILY 02/27/24 04/15/24 History nitrofurantoin 100 mg PO Q12H 7 days #14 caps 04/12/24 04/15/24 Rx monohydrate/macrocrystals 100 mg capsule (Macrobid) allopurinol 100 mg tablet 100 mg PO DAILY 04/15/24 04/15/24 History Past Med/Surg History Problem List (Updated 04/16/24 @ 00:01 by Chase Santamaria DO) Abdominal pain (Acute) Transaminitis (Acute) Leukocytosis (Acute) Acute hypoxic respiratory failure (Acute) Hypertension Anemia Obesity Heartburn Dysmetabolic syndrome X Dyslipidemia Atypical chest pain Mild CAD Heart palpitations PVC,PAC on Holter Colon cancer screening Encounter for pre-operative examination Heme positive stool Hypomagnesemia (Acute) Vision changes Sore throat Excess sun exposure Pain of left breast Weight loss Sore throat Vitamin D deficiency Sleep disorder (Chronic) Hypertension (Chronic) Hyperlipidemia (Chronic) GERD (gastroesophageal reflux disease) (Chronic) Acute kidney injury Hyperkalemia Anemia hx Renal artery stenosis Hypomagnesemia Chronic kidney disease, stage 3a PVCs (premature ventricular contractions) Medical History Palpitations Renal cyst Nocturia Insomnia Inhibited sexual excitement Cough Chronic low back pain Cervicalgia Bilateral leg numbness Hypertensive urgency NSTEMI (non-ST elevated myocardial infarction) Kidney stones GERD (gastroesophageal reflux disease) Hypertension Hyperlipidemia Surgical History History of esophagogastroduodenoscopy (EGD) History of cardiac cath History of colonoscopy Nausea and vomiting after administration of anesthetic agent History of cystoscopy History of lymph node excision Fusion of spine History of arthroscopy History of appendectomy Family History Grandfather (Paternal) Myocardial infarction Other No family history of adverse response to anesthesia Denies family history of Ovarian cancer Prostate cancer Breast cancer Colorectal cancer Social History Smoking Status: Current every day smoker Tobacco Type: Cigarettes Age Started Using Tobacco: 18; packs per day: 0.5; Cigarettes Per Day: <20; Second Hand Exposure: Yes (hx as child); Do You Dip or Chew Tobacco: No; Hx Alcohol Use: No (quit 3 years ago) Hx Substance Use: No Preferred Language: Occitan Communication Ability: Effective Visual Impairment: No Limitations Hearing Ability: Normal Residential Support Worker Required: No Beliefs That Will Affect Care: None marital status: Current Living Situation: Alone current occupational status: retired current occupation: [employer] How many Children do You have: 1 Feels Safe at Home: Yes Childhood Exposure to Second-Hand Smoke: Yes Diet: regular caffeine: Yes during the past year weight has: remained stable Dental Care, Regularly: No Physical Activity Frequency: Does not Exercise Seatbelt Use: always Sunscreen Use: Yes Do you think of yourself as: straight/heterosexual Gender Identity: Male Assistive Devices: None Review of Systems Review of Systems: As per HPI Physical Exam Constitutional: WD/WN, vitals as above well developed; no acute distress Eyes: PERRL, conjunctivae normal, anicteric sclerae ENMT: external ear and nose normal, oropharynx normal Ears: no hearing impairment Neck: trachea midline, no thyromegaly trachea midline Respiratory: normal respiratory effort, lungs clear to auscultation normal respiratory effort and + respiratory distress; no labored breathing and no retractions Auscultation: lungs clear to auscultation bilaterally Cardiovascular: RRR, no murmur, no edema Rate/Rhythm: regular rate and regular rhythm Chest (Breasts): normal inspection/palpation of breasts Chest: normal inspection of chest Gastrointestinal (Abdomen): soft, tenderness present in left upper abdomen Results & Data Results & Data Vital Signs (Past 12 Hours) Vital Signs Temp Pulse Resp BP Pulse Ox O2 Del Method O2 Flow Rate 04/15/24 19:26 94 Nasal Cannula 2 04/15/24 19:19 90 Room Air, Nasal Cannula 0 04/15/24 18:56 91 H 04/15/24 18:42 37.7 C H 96 H 20 165/78 H 92 Room Air Supervising Physician Co-Signing Physician Notes Patient seen and examined, chart reviewed, case discussed with Dr. Jackson and I agree with the assessment and plan as above. Patient with two weeks of intermittent fever, LUQ pain On exam patient is afebrile, HD stable, NAD Skin - no rash HEENT - MMM, neck supple Heart - +S1/S2, regular, no m/r/g Lungs - CTA Abd - LUQ tenderness, no rebound/guarding, no suprapubic pain or CVA tenderness Ext - warm, well perfused Labs and images reviewed WBC=13.05 with neutrophil predominance, elevated monocytes BUN=25, Cr=1.49 Procal=0.7 CT of the abdomen- mild wall thickening and some fat stranding about the urinary bladder, suggestive of cystitis Assessment/Plan Intermittent fever over the last 2 weeks, LUQ abdominal pain. CT with cystitis - uncertain if this is entire reason for his current symptoms ?viral infection such as mono? ?prostatitis although he denies abdominal pain, suprapubic discomfort Follow cultures Continue Zosyn Remainder as above (1) Abdominal pain Abdominal location: unspecified location Qualified Code(s): R10.9 - Unspecified abdominal pain (3) Leukocytosis Leukocytosis type: unspecified Qualified Code(s): D72.829 - Elevated white blood cell count, unspecified
[2024-04-15] MEDS: ACETAMINOPHEN 1,000 MG/100 ML VIAL IV SCH (21:38)
[2024-04-15] MEDS: KETOROLAC TROMETHAMINE 15 MG/ML VIAL IV SCH (21:40)
[2024-04-15] MEDS ORDERED: POLYETHYLENE (MIRALAX) 17 GM PACK PO PRN (22:55)
[2024-04-15] MEDS ORDERED: ONDANSETRON INJ 2 MG/ML 2 ML VIAL IV PRN (22:55)
[2024-04-16] MEDS ORDERED: CALCIUM CARBONATE 500 MG CHEWABLE TAB PO PRN (01:09)
[2024-04-16] MEDS: PIPERACILLIN/TAZOBACTAM 4.5 GM/100 ML BAG IV SCH (02:06)
[2024-04-16] MEDS: SODIUM CHLORIDE 0.9% 1,000 ML IV SCH (02:06)
[2024-04-16 02:32] LABS: Appearance Urine Clear (Clear); Bacteria Urine Automated None Seen (None Seen); Bilirubin Urine Negative (Negative); Blood Urine Negative (Negative); Color Urine Yellow; Epithelial Cell Urine Auto 0-2 /hpf (0-2); Glucose Urine UA Negative (Negative); Ketones Urine Negative (Negative); Leukocyte Esterase Urine Negative (Negative); Nitrite Urine Negative (Negative); Protein Urine 1+ (Negative); RBC Urine Automated 0-2 /hpf (0-2); Specific Gravity Urine > 1.045 (1.000-1.030); Urobilinogen Urine Negative (Negative); pH Urine 5.5 (4.5-7.5)
[2024-04-16] MEDS: traMADol HCL 50 MG TABLET PO PRN (05:28)
--- NOTE | 2024-04-16 07:24 | Electrocardiogram Report ---
Test Reason : Blood Pressure : */* mmHG Vent. Rate : 91 BPM Atrial Rate : 91 BPM P-R Int : 170 ms QRS Dur : 92 ms QT Int : 364 ms P-R-T Axes : 67 -75 75 degrees QTcB Int : 447 ms Normal sinus rhythm Left anterior fascicular block Abnormal ECG When compared with ECG of 16-Oct-2021 18:18, Incomplete right bundle branch block no longer present Confirmed by Jonathan Garay ([id number]) on 04/16/2024 7:23:25 AM Referred By: REFERRED SELF Confirmed By: Jonathan Garay
--- NOTE | 2024-04-16 07:26 | Hospitalist Progress Note ---
Date of Service April 16, 2024 Assessment & Plan (1) Abdominal pain: (2) Transaminitis: (3) Leukocytosis: (4) Hypertension: (5) Hyperlipidemia: (6) GERD (gastroesophageal reflux disease): (7) Acute kidney injury: (8) Chronic kidney disease, stage 3a: Plan Pt is a 73 yo male with PMH of CAD, Dyslipidemia, GERD, CKD stage 3, Gout, HTN who presented to ED with left UQ pain and fever. He has been on abx for UTI given by his PCP. Labs show leukocytosis and transaminitis, Biofire was negative. Procal was 0.70. CXR was unremarkable. CT angio chest was negative. CT abd/pelvis suggests cystitis. Today, pt is reporting pain LUQ pain is radiating to left flank and occasionally to abdomen. CVA tenderness is negative, however, he is significantly tender at SIJ and lumbar spine. #Left upper quadrant pain Chest pain work up negative for pneumonia, URI, PE. - Echocardiogram ordered EF 55-60% with mild LV hypertrophy. No significant valve dysfunction. - Pain management: Tylenol q8hrs PRN, tramadol PRN #Chronic LBP/Left flank pain - Ordered ESR and CRP - Ordered MRI Lumbar spine w/ and w/o contrast #UTI Possible cystitis per findings of CT Abd/pelvis - Urine culture(04/08): Positive for Klebsiella oxytoc (Sensitive to Zosyn, bactrim, resistant ceftriaxone) - UTI being treated outpatient with Bactrim initially then switched to Nitrofurantoin for the last 4 days - Continue IV Zosyn q8hr; Can transit to Nitrofurantoin on discharge if needed to complete course #Leukocytosis -Follow up Blood Culture -Monitor Fever and WBC Curve # ERIN on CKD 3 Baseline creatine: 1.2 - Cr 1.49 at admission, today Cr is 1.07 - Likely Prerenal in the setting of infection - Hold IVF - Avoid nephrotoxic Medication - Monitor kidney function with AM CMP - Consider Nephrology consult if kidney function continue to worsen #Transaminitis AST 73 ALT 93 at admission, down trended today with AST 55 and ALT 78. Likely reactive 2/2 infection/inflammation - Will continue to monitor with AM CMP - Consider RUQ US if continue to rise Chronic Conditions GERD --Continue home Famotidine Hypertension: Continue home amlodipine 10 mg daily , Hydralazine 25 mg TID and metoprolol 100 mg BID Gout: Continue Allopurinol Hyperlipidemia: Hold Atorvastatin in setting of Transaminitis Dispo: Med/Surg Code: Full Code Diet- Regular VTE prophylaxis: Heparin Admission and Anticipated Discharge Date Admission Date: April 15, 2024 Supervising Physician Co-Signing Physician Notes Patient seen and examined, chart reviewed, case discussed with Dr. Gray and I agree with the assessment and plan as above. Patient with two weeks of intermittent fever, LUQ pain On exam patient is afebrile, HD stable, NAD No left CVA tenderness. Pain on L4, L5 and left SI joint Labs and images reviewed leukocytosis and ERIN resolved with antibiotics CT of the abdomen- mild wall thickening and some fat stranding about the urinary bladder, suggestive of cystitis CT chest was also negative. Assessment/Plan Intermittent fever over the last 2 weeks, LUQ abdominal pain. concern for discitis, or osteomyelitis. Patient will get MRI today. will continue antibiotics. Lung and abd pathology appear to be ruled out due to imaging. CT with cystitis - uncertain if this is entire reason for his current symptoms ?viral infection such as mono? ?prostatitis although he denies abdominal pain, suprapubic discomfort Follow cultures Continue Zosyn Remainder as above Subjective Pt is a 73 yo male with PMH of CAD, Dyslipidemia, GERD, CKD stage 3, Gout, HTN who presented to ED with left UQ pain. He has also been on abx for UTI and c/o episodes of SOB. This morning, pt reports he is having intermittent left sided flank and UQ pain with coughing, sneezing, changing positions. He endorses nausea and lack of appetite, but denies vomiting, diarrhea, dysuria, hematuria, or constipation. Pt also c/o headache. Pt reports hx chronic LBP that has caused him pain with movement in the past, but states this pain feels different than his episodes of back pain. Pt denies chest pain, SOB, lower extremity pain, numbness/tingling, bowel or bladder incontinence Review of Systems Review of Systems: As per HPI Physical Exam Physical Exam: General- patient is afebrile, NAD, A&O x 4 Skin - Warm, dry, no rashes HEENT - MMM, neck supple, no lymphadenopathy Heart - +S1/S2, regular, no m/r/g Lungs - CTA, no retractions or increased work of breathing Abd - Mild LUQ tenderness, no rebound/guarding, no suprapubic pain or CVA tenderness MSK- Significant tenderness at left>right SI joint and over spinous processes of L4,5 Results & Data Results & Data Vital Signs (Past 12 Hours) Vital Signs Temp Pulse Pulse Pulse Resp BP Pulse Ox 04/16/24 01:16 04/16/24 01:16 36.7 C 64 20 135/70 95 04/15/24 23:01 70 04/15/24 23:00 72 18 135/63 92 04/15/24 22:00 79 18 153/73 H 93 04/15/24 21:01 85 18 156/78 H 96 04/15/24 19:26 94 04/15/24 19:19 90 O2 Del Method O2 Flow Rate 04/16/24 01:16 Nasal Cannula 2 04/16/24 01:16 Nasal Cannula 2 04/15/24 23:01 04/15/24 23:00 Nasal Cannula 2 04/15/24 22:00 Nasal Cannula 2 04/15/24 21:01 Nasal Cannula 2 04/15/24 19:26 Nasal Cannula 2 04/15/24 19:19 Room Air, Nasal Cannula 0 Resident Activity Tracking Resident Involvement: Resident Care Provided Care Provided: Adult Hospital Medicine (1) Abdominal pain Abdominal location: unspecified location Qualified Code(s): R10.9 - Unsp ecified abdominal pain (3) Leukocytosis Leukocytosis type: unspecified Qualified Code(s): D72.829 - Elevated white blood cell count, unspecified
[2024-04-16 08:03] LABS: Basophils # (auto) 0.02 K/uL (0.00-0.20); Basophils % (auto) 0.2 %; Eosinophils # (auto) 0.17 K/uL (0.00-0.50); Hematocrit (blood only) 35.1 % (42.0-52.0); Hemoglobin 11.4 g/dl (14.0-18.0); Immature Granulocytes # (auto) 0.05 K/uL (0.01-0.20); Immature Granulocytes % (auto) 0.6 %; Lymphocytes # (auto) 0.55 K/uL (1.20-3.40); Lymphocytes % (auto) 6.6 %; Mean Corpuscular Hemoglobin 27.7 pg (25.0-34.0); Mean Corpuscular Hgb Conc 32.5 g/dL (32.0-36.0); Mean Corpuscular Volume 85.4 fL (80.0-100.0); Mean Platelet Volume 10.2 fL (9.4-12.4); Monocytes # (auto) 0.88 K/uL (0.11-0.59); Monocytes % (auto) 10.5 %; Neutrophils # (auto) 6.68 K/uL (1.40-6.50); Neutrophils % (auto) 80.1 %; Platelet Count 158 K/uL (130-400); RDW Coefficient of Variation 18.2 % (11.5-14.5); RDW Standard Deviation 57.1 fL (36.4-46.3); Red Blood Count 4.11 M/uL (4.70-6.10); White Blood Count 8.35 K/ul (4.8-10.8)
[2024-04-16] MEDS: FAMOTIDINE 40 MG TABLET PO SCH (08:16)
[2024-04-16] MEDS: hydrALAZINE HCL 25 MG TAB PO SCH (08:21)
[2024-04-16] MEDS: TORSEMIDE 20 MG TAB PO SCH (08:21)
[2024-04-16] MEDS: METOPROLOL SUCC 50MG EXT REL TAB PO SCH (08:21)
[2024-04-16] MEDS: amLODIPine BESYLATE 5 MG TAB PO SCH (08:21)
[2024-04-16] MEDS: MAGNESIUM CHLORIDE W/CALCIUM 64MG DELAYED REL TAB PO SCH (08:21)
[2024-04-16] MEDS: allopurinoL 100 MG TAB PO SCH (08:22)
[2024-04-16] MEDS: HEPARIN SOD 5,000 UNIT/0.5 ML VIAL SQ SCH (08:28)
--- NOTE | 2024-04-16 08:39 | XCELERA ---
[id number]
[2024-04-16 10:39] LABS: Albumin Globulin Ratio 1.1 (0.9-2); Albumin Level 3.5 gm/dl (3.4-5.0); BUN Creatinine Ratio 15.9 (10-20); Bilirubin,Total 0.6 mg/dl (0.2-1.0); Calcium 8.6 mg/dl (8.6-10.3); Creatinine Clr Calc Pharmacy 78.8 ml/min; Globulin 3.3 gm/dl (2.5-4.0); Potassium 3.9 mmol/L (3.5-5.1); Total Protein 6.8 gm/dl (6.0-8.3)
[2024-04-16 13:57] LABS: C Reactive Protein 11.73 mg/dl (0-0.5)
[2024-04-16] MEDS: LIDOCAINE 5% 1 PATCH TD STA (14:50)
[2024-04-16] MEDS ORDERED: LIDOCAINE 5% 1 PATCH TD PRN (16:03)
[2024-04-16] MEDS ORDERED: Nursing to Pharmacy Communication SCH ×2 (20:15→23:30)
[2024-04-16] MEDS: LORazepam 2 MG/1 ML VIAL IV STA ×2 (20:36→20:38)
[2024-04-16] MEDS: GADOBUTROL 15ML VIAL IV ONE (21:00)
[2024-04-16] MEDS: diphenhydrAMINE Capsule 25 MG CAP PO SCH (22:33)
--- NOTE | 2024-04-16 23:03 | Billing Data ---
Date of Service April 16, 2024 Coding Level of Care Code 62305 SUB INP/OBS CARE MIN
--- NOTE | 2024-04-17 00:24 | Magnetic Resonance Report ---
Exam(s): MRI L SPINE W/WO Contrast IV Amt: 11mL Gadavist EXAM: MR Lumbar Spine Without and With Intravenous Contrast CLINICAL HISTORY: Reason for exam: Low back, SIJ pain. TECHNIQUE: Magnetic resonance images of the lumbar spine without and with intravenous contrast in multiple planes. CONTRAST: Patient received 11mL Gadavist of IV contrast COMPARISON: Prior CT scan of the abdomen and pelvis from April 15, 2024. FINDINGS: Vertebrae: There are 5 lumbar type vertebral bodies with a mild generalized curve to the right and normal lumbar lordosis. There is normal vertebral body height and alignment. The bone marrow signal is heterogeneous with reactive endplate changes. No acute fracture. Spinal cord: The conus is normal size, shape and signal characteristics, terminating at L1-L2. No abnormal enhancement. Soft tissues: Moderate to advanced atrophy of the ileus psoas, paraspinous intraspinous musculature. The aorta and IVC flow voids are intact. Bilateral renal cysts. DISCS/SPINAL CANAL/NEURAL FORAMINA: L1-L2: Moderate disc degeneration with annular disc bulge flattening the ventral thecal sac with disc and osteophyte extend to the neural foramen were found some potential for significant stenosis. L2-L3: There is mild disc degeneration with annular disc bulging flattening the ventral sac with this extend to the neural foramina with evidence of impingement or significant stenosis. L3-L4: Moderate disc degeneration with annular disc bulge asymmetric to the right causing mild subarticular recess stenosis with disc and osteophyte extend to the neural foramina causing a mild right stenosis without evidence of neural impingement. L4-L5: Moderate disc degeneration with annular disc bulge" subarticular recess stenosis with disc and osteophyte extend into the neuroforamina causing mild bilateral stenosis without evidence of neural impingement. L5-S1: The intervertebral disc is normal. IMPRESSION: 1. Moderate disc degeneration at L1-L2, L3-4, L4-5 and mild disc degeneration at L2-3 flattening the ventral thecal sac and causing a mild subarticular recess stenosis at L3-4 without evidence of neural impingement. 2. There is no spinal canal stenosis. 3. There is a mild right L3-4 and mild bilateral L4-5 neural foraminal stenosis without evidence of neural impingement. 4. No evidence of fracture, infection, tumor or arachnoiditis. Electronically signed by: Frances Springer MD 04/17/24 00:23 AM
[2024-04-17 06:29] LABS: Basophils # (auto) 0.03 K/uL (0.00-0.20); Basophils % (auto) 0.4 %; Eosinophils # (auto) 0.18 K/uL (0.00-0.50); Eosinophils % (auto) 2.5 %; Hematocrit (blood only) 35.2 % (42.0-52.0); Hemoglobin 11.4 g/dl (14.0-18.0); Immature Granulocytes # (auto) 0.05 K/uL (0.01-0.20); Immature Granulocytes % (auto) 0.7 %; Lymphocytes # (auto) 0.93 K/uL (1.20-3.40); Lymphocytes % (auto) 12.7 %; Mean Corpuscular Hemoglobin 27.5 pg (25.0-34.0); Mean Corpuscular Hgb Conc 32.4 g/dL (32.0-36.0); Mean Platelet Volume 10.2 fL (9.4-12.4); Monocytes # (auto) 0.91 K/uL (0.11-0.59); Monocytes % (auto) 12.4 %; Neutrophils # (auto) 5.24 K/uL (1.40-6.50); Neutrophils % (auto) 71.3 %; Platelet Count 163 K/uL (130-400); RDW Coefficient of Variation 17.9 % (11.5-14.5); RDW Standard Deviation 55.2 fL (36.4-46.3); Red Blood Count 4.14 M/uL (4.70-6.10); White Blood Count 7.34 K/ul (4.8-10.8)
[2024-04-17 06:54] LABS: Albumin Level 3.5 gm/dl (3.4-5.0); BUN Creatinine Ratio 12.2 (10-20); Bilirubin,Total 0.5 mg/dl (0.2-1.0); Calcium 8.9 mg/dl (8.6-10.3); Creatinine Clr Calc Pharmacy 73.3 ml/min; Globulin 3.5 gm/dl (2.5-4.0); Potassium 3.9 mmol/L (3.5-5.1)
--- NOTE | 2024-04-17 11:51 | Hospitalist Progress Note ---
Date of Service April 17, 2024 Assessment & Plan (1) Abdominal pain: (2) Transaminitis: (3) Leukocytosis: (4) Hypertension: (5) Hyperlipidemia: (6) GERD (gastroesophageal reflux disease): (7) Acute kidney injury: (8) Chronic kidney disease, stage 3a: Plan Pt is a 73 yo male with PMH of CAD, Dyslipidemia, GERD, CKD stage 3, Gout, HTN who presented to ED with left UQ pain and fever. He has been on abx for UTI given by his PCP. Labs show leukocytosis and transaminitis, Biofire was negative. Procal was elevated. CXR was unremarkable. CT angio chest was negative. CT abd/pelvis suggests cystitis. Today, pt is reporting pain at LUQ, flank and lumbar region is reduced. His Liver enzymes have increased, especially ALT. Lumbar MRI significant for degenerative changes, but no evidence of infection. #Left upper quadrant pain Chest pain work up negative for pneumonia, URI, PE. - Echocardiogram ordered EF 55-60% with mild LV hypertrophy. No significant valve dysfunction. - Pain management: Tylenol q8hrs PRN, tramadol PRN #Chronic LBP/Left flank pain - ESR and CRP are elevated - MRI Lumbar spine w/ and w/o contrast completed 04/16- Showed degenerative changes and narrowing of disc spaced without spinal cord or foraminal encroachment. No signs of infection at lumbar spine. #UTI Possible cystitis per findings of CT Abd/pelvis - Urine culture(04/08): Positive for Klebsiella oxytoc (Sensitive to Zosyn, bactrim, resistant ceftriaxone) - UTI being treated outpatient with Bactrim initially then switched to Nitrofurantoin for the last 4 days - Continue IV Zosyn q8hr Will plan for 2 weeks of abx on discharge if needed to complete course #Leukocytosis -Blood Culture with no growth after 24 hrs -Pt is afebrile, WBC's in normal range # ERIN on CKD 3 Baseline creatine: 1.2 - Cr 1.49 at admission, today Cr is 1.15 - Likely Prerenal in the setting of infection - Avoiding nephrotoxic Medication - Monitor kidney function with AM CMP - Consider Nephrology consult if kidney function continue to worsen #Transaminitis AST 73 ALT 93 at admission, down trended on 04/16, but increased today with AST 68 and ALT 107. Alk phos is elevated at 130 Bilirubin and platelets are normal - Ordered acute hepatitis panel - Consider liver US either during this hospital stay or in outpatient setting - Will continue to monitor with AM CMP Chronic Conditions GERD --Continue home Famotidine Hypertension: Continue home amlodipine 10 mg daily , Hydralazine 25 mg TID and metoprolol 100 mg BID Gout: Continue Allopurinol Hyperlipidemia: Hold Atorvastatin in setting of Transaminitis Dispo: Med/Surg Code: Full Code Diet- Regular VTE prophylaxis: Heparin Admission and Anticipated Discharge Date Admission Date: April 15, 2024 Supervising Physician Co-Signing Physician Notes Patient seen and examined, chart reviewed, case discussed with Dr. Gray and I agree with the assessment and plan as above. Patient with two weeks of intermittent fever, LUQ pain Pain has improved. On exam patient is afebrile, HD stable, NAD No left CVA tenderness. decreased pain on lumbar spine and SI joint. Labs and images reviewed leukocytosis and ERIN resolved with antibiotics CT of the abdomen- mild wall thickening and some fat stranding about the urinary bladder, suggestive of cystitis CT chest was also negative. MRI lumbar spine: negative for discitis and osteomyelitits Assessment/Plan Intermittent fever over the last 2 weeks, LUQ abdominal pain. Pain is improved.. will continue antibiotics. Lung and abd pathology appear to be ruled out due to imaging. CT with cystitis - uncertain if this is entire reason for his current symptoms ?viral infection such as mono? ?prostatitis although he denies abdominal pain, suprapubic discomfort Follow cultures Continue Zosyn Remainder as above Subjective Pt is a 73 yo male with PMH of CAD, Dyslipidemia, GERD, CKD stage 3, Gout, HTN who presented to ED with left UQ pain. He has also been on abx for UTI and c/o episodes of SOB. This morning, pt reports reduction in LUQ, flank and low back pain. He reports he ws able to eat half his dinner and a couple cups of ice cream without significant nausea and no vomiting. Pt reports he had a BM this morning that was hard and pellet-like. Pt reports history of straining and hard stools. Denies melena or blood in commode or with toileting hygiene. Pt endorses 40+ yr history of alcohol use drinking .20L to half gallon of whiskey every 5-7 days. Pt stopped alcohol use after IA in 2019. He denies any alcohol use since that time. Pt denies chest pain, SOB, lower extremity pain, numbness/tingling, diarrhea, bowel or bladder incontinence Review of Systems Review of Systems: As per HPI Physical Exam Physical Exam: General- patient is afebrile, NAD, A&O x 4 Skin - Warm, dry, no rashes HEENT - MMM, neck supple, no lymphadenopathy Heart - +S1/S2, regular, no m/r/g Lungs - CTA, no retractions or increased work of breathing Abd - Mild LUQ and LLQ tenderness, no suprapubic pain or CVA tenderness MSK- Mild tenderness at left>right SI joint and no pain over spinous processes of L1-5 Results & Data Results & Data Vital Signs (Past 12 Hours) Vital Signs Temp Pulse Resp BP Pulse Ox O2 Del Method 04/17/24 07:45 Room Air 04/17/24 07:05 37.3 C 71 16 137/71 92 Room Air Laboratory Results Abnormal lab results 04/16/24 04/17/24 Range/Units 07:13 06:01 RBC 4.14 L (4.70-6.10) M/uL Hgb 11.4 L (14.0-18.0) g/dl Hct 35.2 L (42.0-52.0) % RDW Std Deviation 55.2 H (36.4-46.3) fL RDW Coeff of Tariq 17.9 H (11.5-14.5) % Lymph # (Auto) 0.93 L (1.20-3.40) K/uL [place] # (Auto) 0.91 H (0.11-0.59) K/uL ESR 90 H 99 H (0-20) mm/hr Glucose 102 H (70-99(Fasting)) mg/dl AST 68 H (13-39) U/L ALT 107 H (7-52) U/L Alkaline Phosphatase 130 H (34-104) U/L C-Reactive Protein 11.73 H 11.00 H (0-0.5) mg/dl (1) Abdominal pain Abdominal location: unspecified location Qualified Code(s): R10.9 - Unspecified abdominal pain (3) Leukocytosis Leukocytosis type: unspecified Qualified Code(s): D72.829 - Elevated white blood cell count, unspecified
[2024-04-17] MEDS: ACETAMINOPHEN 325 MG TAB PO PRN (15:16)
--- NOTE | 2024-04-17 22:18 | Billing Data ---
Date of Service April 17, 2024 Coding Level of Care Code 88329 SUB INP/OBS CARE MIN
[2024-04-18 06:50] LABS: Basophils # (auto) 0.04 K/uL (0.00-0.20); Basophils % (auto) 0.5 %; Eosinophils % (auto) 2.4 %; Hematocrit (blood only) 37.3 % (42.0-52.0); Hemoglobin 11.9 g/dl (14.0-18.0); Immature Granulocytes # (auto) 0.04 K/uL (0.01-0.20); Immature Granulocytes % (auto) 0.5 %; Lymphocytes # (auto) 1.74 K/uL (1.20-3.40); Mean Corpuscular Hgb Conc 31.9 g/dL (32.0-36.0); Mean Corpuscular Volume 84.6 fL (80.0-100.0); Monocytes # (auto) 1.05 K/uL (0.11-0.59); Monocytes % (auto) 12.7 %; Neutrophils # (auto) 5.21 K/uL (1.40-6.50); Neutrophils % (auto) 62.9 %; Platelet Count 189 K/uL (130-400); RDW Standard Deviation 55.6 fL (36.4-46.3); Red Blood Count 4.41 M/uL (4.70-6.10); White Blood Count 8.28 K/ul (4.8-10.8)
[2024-04-18 07:05] LABS: Albumin Level 3.8 gm/dl (3.4-5.0); BUN Creatinine Ratio 12.6 (10-20); Bilirubin,Total 0.7 mg/dl (0.2-1.0); Calcium 9.2 mg/dl (8.6-10.3); Creatinine Clr Calc Pharmacy 70.9 ml/min; Globulin 3.8 gm/dl (2.5-4.0); Potassium 3.8 mmol/L (3.5-5.1); Total Protein 7.6 gm/dl (6.0-8.3)
--- NOTE | 2024-04-18 14:19 | Orthopedic Consultation ---
Date of Consultation April 18, 2024 Assessment & Plan (1) Arthritis of right knee: (2) Abdominal pain: (3) Transaminitis: (4) Hypertension: (5) Obesity: (6) Dyslipidemia: (7) Atypical chest pain: (8) Heart palpitations: (9) Chronic kidney disease, stage 3a: Plan 73-year-old gentleman is present in the hospital for concerns related to potential urinary tract infection. Orthopedics consult today as the patient began complaining of some pain in his left knee. With regards to the patient's left knee, on physical exam he demonstrates the ability to perform knee range of motion without significant pain. He has been able to walk today without significant pain as well. The patient's history, physical exam, imaging findings are most consistent with an acute flare of his underlying osteoarthritis or potentially even a gouty flare as the patient does have a history of gout. Considering the patient does not have pain with micromotion, has been able to ambulate on this, and does not have significant erythema surrounding his knee or significant effusion, my index of suspicion for septic arthritis is exceedingly low. That being said, he has had recurrent fevers since being admitted and his ESR and CRP have remained elevated. The patient is very concerned that he has an infection in the knee and he would like to rule this out. Given the patient's wishes, I did offer him arthrocentesis which she excepted. We discussed the risks of arthrocentesis which included seeding the knee with an infection, painful procedure, nondiagnostic fluid analysis. Patient understands and wished to proceed. Please see separate procedure note for full details. I did return about 5 cc of normal-appearing joint fluid during this arthrocentesis. This was sent to the lab for evaluation. Recommendations pending laboratory evaluation. History of Present Illness Reason for Consultation: Right knee pain Requesting Physician: Dr Gray Attending Physician: Reuben Prince History of Present Illness This is a 73-year-old gentleman who was admitted for cystitis and suspected pyelonephritis and has been on antibiotics for the past few days (Zosyn). His past medical history is significant for dyslipidemia, NSTEMI, Gout,Hypertension, Obesity, Anemia, CAD GERD and Chronic Kidney Disease Stage 3. He initially presented to ER with left upper quadrant abdominal pain which started when he was eating vegetable soup. He also had urinary symptoms that had been present for about a week. He went to see his PA last week for this and was started on Bactrim . Uring culture was positive for Klebsiella and Bactrim was switched to Nitrofurantoin. in the ER, he had a fever and also endorsed shortness of breath and cough. Denies chest pain. He is smoker and started smoking at the age of 19. He smokes less than a pack per day. He doesn't consume alcohol. 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 With regards the patient's right knee, he states he had meniscal surgery about 20 years ago. He denies any recent trauma to the area. He notes that this morning he was able to get around and walk and was not having any issues, but when he lied down he states that he bumped his knee and it has been hurting him ever since. He states the knee feels somewhat swollen. He points to the lateral joint line as the primary source of his pain. He does have a history of gout. He notes that he is still able to bend his knee without significant pain. Patient's knee did not bother him prior to today. Allergies Allergy/AdvReac Type Severity Reaction Status Date / Time bee venom protein (honey bee) Allergy Intermediate EXTRA Verified 04/08/24 09:30 SWELLING OF SITE Home Medications Medication Instructions Recorded Confirmed Type diphenhydramine HCl 25 mg capsule 25 mg PO HS 04/13/21 04/15/24 History (Benadryl) ascorbate calcium (vitamin C) 500 1,000 mg PO QAM 10/16/21 04/15/24 History mg tablet krill 350 mg-omega-3 90 mg-dha 24 1 cap PO QAM 10/16/21 04/15/24 History mg-epa 50 kj-owbldty-utcej capsule ([place]-3 Krill Oil) magnesium chloride 71.5 mg 71.5 mg PO DAILY #90 tabs 11/07/22 04/15/24 Rx (magnesium chloride) tablet,delayed release (Slow-Mag) famotidine 40 mg tablet (Pepcid) 40 mg PO BID #180 tabs 04/22/23 04/15/24 Rx amlodipine 10 mg tablet 10 mg PO QAM #90 tabs 05/28/23 04/15/24 Rx hydralazine 25 mg tablet 25 mg PO TID #300 tabs 05/28/23 04/15/24 Rx tadalafil 20 mg tablet 20 mg PO UD PRN sexual activity 07/04/23 04/15/24 Rx #20 tabs atorvastatin 40 mg tablet 40 mg PO HS #90 tabs 11/07/23 04/15/24 Rx metoprolol succinate 100 mg 100 mg PO BID #180 tabs 11/11/23 04/15/24 Rx tablet,extended release 24 hr torsemide 20 mg tablet 20 mg PO QAM #90 tabs 11/11/23 04/15/24 Rx niacin 100 mg tablet 100 mg PO DAILY 02/27/24 04/15/24 History nitrofurantoin 100 mg PO Q12H 7 days #14 caps 04/12/24 04/15/24 Rx monohydrate/macrocrystals 100 mg capsule (Macrobid) allopurinol 100 mg tablet 100 mg PO DAILY 04/15/24 04/15/24 History Patient History Medical History Palpitations Renal cyst Nocturia Insomnia Inhibited sexual excitement Cough Chronic low back pain Cervicalgia Bilateral leg numbness Hypertensive urgency NSTEMI (non-ST elevated myocardial infarction) Kidney stones GERD (gastroesophageal reflux disease) Hypertension Hyperlipidemia Surgical History History of esophagogastroduodenoscopy (EGD) History of cardiac cath History of colonoscopy Nausea and vomiting after administration of anesthetic agent History of cystoscopy History of lymph node excision Fusion of spine History of arthroscopy History of appendectomy Family History Grandfather (Paternal) Myocardial infarction Other No family history of adverse response to anesthesia Denies family history of Ovarian cancer Prostate cancer Breast cancer Colorectal cancer Social History Smoking Status: Current every day smoker Tobacco Type: Cigarettes Age Started Using Tobacco: 18; packs per day: 0.5; Cigarettes Per Day: less than 1 PPD; Second Hand Exposure: Yes (hx as child); Do You Dip or Chew Tobacco: No; Hx Alcohol Use: No Hx Substance Use: No Preferred Language: Maltese Communication Ability: Effective Visual Impairment: No Limitations Hearing Ability: Normal [place] [employer] Required: No Beliefs That Will Affect Care: None marital status: Current Living Situation: Alone current occupational status: retired current occupation: [employer] How many Children do You have: 1 Other Information That Helps Us Care for You: No Feels Safe at Home: Yes Safety Concerns: Feels Safe At This Time Childhood Exposure to Second-Hand Smoke: Yes Diet: regular caffeine: Yes during the past year weight has: remained stable Dental Care, Regularly: No Physical Activity Frequency: Does not Exercise Seatbelt Use: always Sunscreen Use: Yes Do you think of yourself as: straight/heterosexual Gender Identity: Male Assistive Devices: None Review of Systems Review of Systems: Reviewed and negative unless otherwise stated in HPI Physical Exam Physical Exam: right knee: -Previous surgical incision at the later al joint line well-healed without evidence of drainage. There is mild surrounding erythema over this scar. The patient is tender to palpation on the scar. There is a mild joint effusion present. Patient demonstrates range of motion from 0 to 90 degrees without significant pain. He starts having pain after 90 degrees. He is nontender to palpation at his medial joint line. His knee is slightly warm compared to contralateral side. He has intact sensation throughout the lower extremity. Results & Data Vital Signs (Past 12 Hours) Vital Signs Temp Pulse Resp BP Pulse Ox O2 Del Method 04/18/24 07:45 Room Air 04/18/24 07:30 37.5 C 74 16 144/70 H 97 Room Air Laboratory Results ESR: 120 mm/h CRP: 11.58 mg/dL WBC: 8.28 Diagnostic Findings X-rays of the right knee obtained today were personally reviewed and interpreted. These demonstrate no acute osseous abnormalities. There is mild degenerative changes noted on this nonweightbearing radiograph. There are osteophytes present. (2) Abdominal pain Abdominal location: unspecified location Qualified Code(s): R10.9 - Unspecified abdominal pain
--- NOTE | 2024-04-18 14:19 | XRay Report ---
EXAM: Radiographs of the Right Knee 2 Views INDICATION: Pain TECHNIQUE: Frontal and lateral views of the right knee. COMPARISON: No relevant prior studies available. FINDINGS: Bones/joints: There is trace patellofemoral and medial and lateral joint line spurring noted. Smooth articular surfaces. No erosion or loose body. No fracture. Soft tissues: No abnormality noted. No radiopaque foreign body noted. IMPRESSION: No acute abnormality right knee. ACT 112: N/A Electronically signed by Paulette Moulton 04-18-2024 2:18 PM
--- NOTE | 2024-04-18 14:28 | Hospitalist Progress Note ---
Date of Service April 18, 2024 Assessment & Plan (1) Abdominal pain: (2) Transaminitis: (3) Leukocytosis: (4) Hypertension: (5) Hyperlipidemia: (6) GERD (gastroesophageal reflux disease): (7) Acute kidney injury: (8) Chronic kidney disease, stage 3a: Plan Pt is a 73 yo male with PMH of CAD, Dyslipidemia, GERD, CKD stage 3, Gout, HTN who presented to ED with left UQ pain and fever. He has been on abx for UTI given by his PCP. Labs showed leukocytosis and transaminitis, Biofire was negative. Procal was elevated. CXR was unremarkable. CT angio chest was negative. CT abd/pelvis suggests cystitis. Today, LUQ, flank and low back pain have resolved, WBC count is normal. However, liver enzymes have increased, especially ALT as well as Alk phos. Pt is no reporting right knee pain with edema, rubor and warm to touch. ESR and CRP was noted to be elevated on labs drawn 04/17. #Left upper quadrant pain Chest pain work up negative for pneumonia, URI, PE. - Echocardiogram ordered EF 55-60% with mild LV hypertrophy. No significant valve dysfunction. - Pain has resolved as of this morning. - Pain management: Tylenol q8hrs PRN, tramadol PRN #Chronic LBP/Left flank pain - ESR and CRP are elevated - MRI Lumbar spine w/ and w/o contrast completed 04/16- Showed degenerative changes and narrowing of disc spaced without spinal cord or foraminal encroachment. No signs of infection at lumbar spine. - Pain at left flank has resolved, LBP has returned to previous level #UTI Possible cystitis per findings of CT Abd/pelvis - Urine culture(04/08): Positive for Klebsiella oxytoc (Sensitive to Zosyn, bactrim, resistant ceftriaxone) - Ordered repeat urine culture 04/18 - UTI being treated outpatient with Bactrim initially then switched to Nitrofurantoin for the last 4 days - Continue IV Zosyn q8hr Will plan for 2 weeks of abx on discharge if needed to complete course #Leukocytosis -Blood Culture with no growth after 48 hrs -Pt had febrile episode 04/18 at 38.0C- resolved with tylenol - WBC's in normal range #Right lateral knee pain - New onset right knee pain with mild edema, rubor and warm to touch - Hx of meniscus surgery 20 yrs ago, hx of gout on allopurinol daily - Ortho consulted for possible joint aspiration # ERIN on CKD 3 Baseline creatine: 1.2 - Cr 1.49 at admission, today Cr is 1.15 - Likely Prerenal in the setting of infection - Avoiding nephrotoxic Medication - Monitor kidney function with AM CMP - Consider Nephrology consult if kidney function continue to worsen #Transaminitis AST 73 ALT 93 at admission, down trended on 04/16, but increasing since 04/17. Today AST 74 and ALT 137. Alk phos is elevated from 130 to 177 Bilirubin and platelets are normal - Ordered acute hepatitis panel 04/17, pending results - Consider liver US either during this hospital stay or in outpatient setting - Will continue to monitor with AM CMP Chronic Conditions GERD --Continue home Famotidine Hypertension: Continue home amlodipine 10 mg daily , Hydralazine 25 mg TID and metoprolol 100 mg BID Gout: Continue Allopurinol Hyperlipidemia: Hold Atorvastatin in setting of Transaminitis Dispo: Med/Surg Code: Full Code Diet- Regular VTE prophylaxis: Heparin Admission and Anticipated Discharge Date Admission Date: April 15, 2024 Supervising Physician Co-Signing Physician Notes Patient seen and examined, chart reviewed, case discussed with Dr. Gray and I agree with the assessment and plan as above. Patient with two weeks of intermittent fever, LUQ pain Pain continues to improve, however patient did have a temperature of 38 F. Will trend, this could be from atelectasis. On exam patient is afebrile, HD stable, NAD No left CVA tenderness. Labs and images reviewed leukocytosis and ERIN resolved with antibiotics CT of the abdomen- mild wall thickening and some fat stranding about the urinary bladder, suggestive of cystitis CT chest was also negative. MRI lumbar spine: negative for discitis and osteomyelitits Assessment/Plan Intermittent fever over the last 2 weeks, LUQ abdominal pain. Pain is improved. Though patient did have a temperature. will continue antibiotics. Lung and abd pathology appear to be ruled out due to imaging. CT with cystitis - uncertain if this is entire reason for his current symptoms ?viral infection such as mono? ?prostatitis although he denies abdominal pain, suprapubic discomfort will hold tylenol startin on 04/19/ Follow cultures Continue Zosyn Remainder as above Subjective Pt is a 73 yo male with PMH of CAD, Dyslipidemia, GERD, CKD stage 3, Gout, HTN who presented to ED with left UQ pain. He has also been on abx for UTI and c/o episodes of SOB. Yesterday afternoon, pt had a fever os 38.0. Took tylenol and was relieved within an hour. No fevers since that time. This morning, pt reports relief of left UQ, periumbilical and left flank pain. His low back pain has returned to previous level that has been chronic for several years. Pt reports appetite has returned and he is no longer feeling nauseous. He does note new onset of R lateral knee pain that started this morning without cause. He states it is tender to the touch and appears swollen. No increased pain with knee ROM or weight bearing. He endorses hx of R knee meniscus surgery 20+ years ago, no other surgical procedures to his R knee. Pt denies headache, chest pain, SOB, extremity numbness/tingling, diarrhea, dysuria, or rashes Review of Systems Review of Systems: As per HPI Physical Exam Physical Exam: General- patient is afebrile, NAD, A&O x 4 Skin - Warm, dry, no rashes HEENT - MMM, neck supple, no lymphadenopathy Heart - +S1/S2, regular, no m/r/g Lungs - CTA, no retractions or increased work of breathing Abd - Mild LUQ and LLQ tenderness, no suprapubic pain or CVA tenderness MSK- Mild tenderness at right SI joint and no pain over spinous processes of L1- 5. R knee appears red, warm to touch and mild edema at infrapatellar and at lateral joint line. Pt has full knee ROM and strength without increased pain. Pain reported with light palpation generally at lateral knee over edematous area, no tenderness infra patella. Results & Data Results & Data Vital Signs (Past 12 Hours) Vital Signs Temp Pulse Resp BP Pulse Ox O2 Del Method 04/18/24 07:45 Room Air 04/18/24 07:30 37.5 C 74 16 144/70 H 97 Room Air Resident Activity Tracking Resident Involvement: Resident Care Provided Care Provided: [facility] Medicine (1) Abdominal pain Abdominal location: unspecified location Qualified Code(s): R10.9 - Unspecified abdominal pain (3) Leukocytosis Leukocytosis type: unspecified Qualified Code(s): D72.829 - Elevated white blood cell count, unspecified
[2024-04-18] MEDS: LIDOCAINE 1% LOCAL 20 ML VIAL SQ ONE (15:05)
--- NOTE | 2024-04-18 15:12 | Procedure Note ---
Procedure Note Date of Service April 18, 2024 Note Right knee arthrocentesis procedure note Procedure: Right knee arthrocentesis Surgeon: Santosh Harvey DO Preoperative diagnosis: Right knee pain and swelling Postop diagnosis: Same Indications: 73-year-old gentleman admitted for fevers suspected to be related to urinary tract infection, however new development of right knee pain and swelling. I did discuss that my index of suspicion for septic arthritis of the right knee is quite low given the patient's ability to move his knee and bear weight, however the patient was concerned that he did have an infection as such arthrocentesis was requested. We discussed the risks of arthrocentesis that include but are not limited to introduction of infection, pain, nondiagnostic results. The patient understands and wishes to proceed. Procedure: 3 cc of 1% lidocaine without epinephrine were injected into the subcuticular tissues surrounding the lateral aspect of the patella in order to make the introduction of the spinal needle later less painful. Once adequate analgesia was achieved, his right knee was prepped and draped in standard sterile fashion using Betadine. An 18-gauge spinal needle was introduced from the superolateral aspect of the knee under the patella into the knee joint. Synovial fluid was then withdrawn. 5 cc of clear yellow fluid was obtained. the syringe was capped, labeled with the patient sticker and sent to the lab for analysis including cell count with differential, crystals, Lyme analysis, culture and Gram stain. Pressure was held on the site of arthrocentesis and then the skin was cleaned and a sterile Band-Aid was applied. The leg was then wrapped in an Real wrap. Patient tolerated procedure well without evidence of acute complication. Coding
[2024-04-18 15:46] LABS: Appearance Synovial Fluid Hazy; Color Synovial Fluid Yellow; Mononuclear WBC Synovial 82.7 %; Polynuclear WBC Synovial 17.3 %; RBC Synovial Fluid Auto < 2000 /uL; Source Synovial Fluid Right Knee; WBC Synovial Fluid Auto 129 /ul (0-200)
--- NOTE | 2024-04-19 07:51 | Billing Data ---
Date of Service April 18, 2024 Coding Level of Care Code 87622 SUB INP/OBS CARE MIN
[2024-04-19 08:01] LABS: Basophils # (auto) 0.06 K/uL (0.00-0.20); Basophils % (auto) 0.7 %; Eosinophils # (auto) 0.28 K/uL (0.00-0.50); Eosinophils % (auto) 3.2 %; Hematocrit (blood only) 35.2 % (42.0-52.0); Hemoglobin 11.1 g/dl (14.0-18.0); Immature Granulocytes # (auto) 0.05 K/uL (0.01-0.20); Immature Granulocytes % (auto) 0.6 %; Lymphocytes # (auto) 1.54 K/uL (1.20-3.40); Lymphocytes % (auto) 17.8 %; Mean Corpuscular Hemoglobin 26.9 pg (25.0-34.0); Mean Corpuscular Hgb Conc 31.5 g/dL (32.0-36.0); Mean Corpuscular Volume 85.4 fL (80.0-100.0); Mean Platelet Volume 10.2 fL (9.4-12.4); Monocytes # (auto) 0.95 K/uL (0.11-0.59); Neutrophils # (auto) 5.79 K/uL (1.40-6.50); Neutrophils % (auto) 66.7 %; Platelet Count 187 K/uL (130-400); RDW Coefficient of Variation 17.9 % (11.5-14.5); RDW Standard Deviation 55.7 fL (36.4-46.3); Red Blood Count 4.12 M/uL (4.70-6.10); White Blood Count 8.67 K/ul (4.8-10.8)
[2024-04-19 08:29] LABS: Albumin Level 3.5 gm/dl (3.4-5.0); BUN Creatinine Ratio 13.8 (10-20); Bilirubin,Total 0.5 mg/dl (0.2-1.0); Calcium 8.8 mg/dl (8.6-10.3); Creatinine Clr Calc Pharmacy 77.4 ml/min; Globulin 3.5 gm/dl (2.5-4.0); Potassium 3.7 mmol/L (3.5-5.1)
[2024-04-19 09:41] LABS: Hep B Surface Ag with confirm Negative (Negative)
[2024-04-19 09:46] LABS: Hep C Ab Rflx HepCQuant RNA Negative (Negative)
[2024-04-19 16:14] VITALS: O2SAT 93
--- NOTE | 2024-04-19 23:11 | Hospitalist Progress Note ---
Date of Service April 19, 2024 Assessment & Plan (1) Abdominal pain: (2) Transaminitis: (3) Leukocytosis: (4) Hypertension: (5) Hyperlipidemia: (6) GERD (gastroesophageal reflux disease): (7) Acute kidney injury: (8) Chronic kidney disease, stage 3a: Plan Pt is a 73 yo male with PMH of CAD, Dyslipidemia, GERD, CKD stage 3, Gout, HTN who presented to ED with left UQ pain and fever. He has been on abx for UTI given by his PCP. Labs showed leukocytosis and transaminitis, Biofire was negative. Procal was elevated. CXR was unremarkable. CT angio chest was negative. CT abd/pelvis suggests cystitis. Today, LUQ, flank and low back pain have resolved, WBC count is normal. However, liver enzymes have increased, especially ALT as well as Alk phos. Pt is no reporting right knee pain with edema, rubor and warm to touch. ESR and CRP was noted to be elevated on labs drawn 04/17. #Left upper quadrant pain Chest pain work up negative for pneumonia, URI, PE. - Echocardiogram ordered EF 55-60% with mild LV hypertrophy. No significant valve dysfunction. - Pain has resolved as of this morning. - Pain management: Tylenol q8hrs PRN, tramadol PRN #Chronic LBP/Left flank pain - ESR and CRP are elevated - MRI Lumbar spine w/ and w/o contrast completed 04/16- Showed degenerative changes and narrowing of disc spaced without spinal cord or foraminal encroachment. No signs of infection at lumbar spine. - Pain at left flank has resolved, LBP has returned to previous level #UTI Possible cystitis per findings of CT Abd/pelvis - Urine culture(04/08): Positive for Klebsiella oxytoc (Sensitive to Zosyn, bactrim, resistant ceftriaxone) - Ordered repeat urine culture 04/18 - UTI being treated outpatient with Bactrim initially then switched to Nitrofurantoin for the last 4 days - Continue IV Zosyn q8hr Will plan for 2 weeks of abx on discharge if needed to complete course Patient with a temperature on 04/17 of 38 c. will hold tylenol to ensure patient remains afebrile. if remains afebrile will discharge patient on 04/20 #Leukocytosis -Blood Culture with no growth after 48 hrs -Pt had febrile episode 04/18 at 38.0C- resolved with tylenol - WBC's in normal range #Right lateral knee pain - New onset right knee pain with mild edema, rubor and warm to touch - Hx of meniscus surgery 20 yrs ago, hx of gout on allopurinol daily - Ortho consulted for possible joint aspiration # ERIN on CKD 3 Baseline creatine: 1.2 - Cr 1.49 at admission, today Cr is 1.09 - Likely Prerenal in the setting of infection - Avoiding nephrotoxic Medication - Consider Nephrology consult if kidney function continue to worsen #Transaminitis AST 73 ALT 93 at admission, down trended on 04/16, but increasing since 04/17. Today AST 74 and ALT 137. Alk phos is elevated from 130 to 177 Bilirubin and platelets are normal - Ordered acute hepatitis panel 04/17, pending results - Consider liver US either during this hospital stay or in outpatient setting - AST ALT downtrending. Chronic Conditions GERD --Continue home Famotidine Hypertension: Continue home amlodipine 10 mg daily , Hydralazine 25 mg TID and metoprolol 100 mg BID Gout: Continue Allopurinol Hyperlipidemia: Hold Atorvastatin in setting of Transaminitis Dispo: Med/Surg Code: Full Code Diet- Regular VTE prophylaxis: Heparin Admission and Anticipated Discharge Date Admission Date: April 15, 2024 Subjective 73 yo male reports no new symptoms. Physical Exam Physical Exam: General- patient is afebrile, NAD, A&O x 4 Skin - Warm, dry, no rashes HEENT - MMM, neck supple, no lymphadenopathy Heart - +S1/S2, regular, no m/r/g Lungs - CTA, no retractions or increased work of breathing Abd - Mild LUQ and LLQ tenderness, no suprapubic pain or CVA tenderness Results & Data Results & Data Vital Signs (Past 12 Hours) Vital Signs Temp Pulse Resp BP Pulse Ox O2 Del Method 04/19/24 21:30 37 C 66 18 130/68 93 Room Air 04/19/24 14:37 36.9 C 67 16 138/77 93 Room Air PG Care Time/CCT Total # of Minutes Spent Total Time Spent with Patient: Total time spent is greater than 50% in coordination of care (as documented) at patient's floor/unit and/or counseling patient: Coding Level of Care Code 83022 SUB INP/OBS CARE 3/50MIN Diagnoses Abdominal pain R10.9 Abdominal location: unspecified location Transaminitis R74.01 Leukocytosis D72.829 Leukocytosis type: unspecified Hypertension I10 Hyperlipidemia E78.5 GERD (gastroesophageal reflux disease) K21.9 Acute kidney injury N17.9 Chronic kidney disease, stage 3a N18.3 (1) Abdominal pain Abdominal location: unspecified location Qualified Code(s): R10.9 - Unspecified abdominal pain (3) Leukocytosis Leukocytosis type: unspecified Qualified Code(s): D72.829 - Elevated white blood cell count, unspecified
[2024-04-20 07:12] VITALS: BP 118/65; RESP 16; TEMP 98.4
[2024-04-20 07:32] LABS: Hematocrit (blood only) 34.8 % (42.0-52.0); Mean Corpuscular Hgb Conc 31.6 g/dL (32.0-36.0); Mean Corpuscular Volume 85.5 fL (80.0-100.0); Mean Platelet Volume 10.2 fL (9.4-12.4); Platelet Count 205 K/uL (130-400); RDW Standard Deviation 55.9 fL (36.4-46.3); Red Blood Count 4.07 M/uL (4.70-6.10); White Blood Count 9.42 K/ul (4.8-10.8)
[2024-04-20 07:37] LABS: C Reactive Protein 8.12 mg/dl (0-0.5); Creatinine Clr Calc Pharmacy 69.7 ml/min; Potassium 3.5 mmol/L (3.5-5.1)
[2024-04-20 11:19] VITALS: PULSE 72
[2024-04-20 15:16] LABS: Hepatitis A Antibody IgM NON-REACTIVE (NON-REACTIVE); Hepatitis B Core Antibody IgM NON-REACTIVE (NON-REACTIVE)
== END 2024-04-20 12:20 | disposition home or self-care (01) | DRG 690 ==
LOC: ED 18:40 → SUATTDRO 22:56 → 3W 22:56